=== PATIENT | female | born 1960 | race Caucasian/White ===

== ENCOUNTER 2017-03-15 13:13 | Inpatient (IN) | payer OTHER ==
[~2017-03-15] VITALS: Ht 170.1 cm; Wt 89.4 kg
--- NOTE | ~2017-03-15 | PR ---
[place], [place] PROGRESS NOTE [id number] UNIT #: [id number] ROOM: 515 DOCTOR: BAYRON MAHER MD,JAGUAR BIRTHDATE: [birth year] DOS: 03/18/2017 SUBJECTIVE: She continues to show consistent improvement in respiratory symptoms, reduction in the cough, shortness breath and wheezing. The patient denies symptoms of chest pain. PHYSICAL EXAMINATION: VITAL SIGNS: For the patient, which was recorded shows normal temperature, respiratory rate recorded as 18, heart rate of 58, blood pressure 176/94. HEENT: Shows chronic obesity. NECK: Supple. CARDIOVASCULAR: S1, S2 audible. LUNGS: The patient was noted with moderate decreased breath sounds in the lungs bilaterally. Mild expiratory wheezing at this time. ABDOMEN: Soft, nontender. LABORATORY DATA: CBC: WBC count 18.9. Remaining CBC was normal. 96% segmented neutrophils were noted with the differential. BMP: Sodium 150. BUN and creatinine were normal today. IMPRESSION: 1. Gradual and progressive resolution for the patient was noted in acute exacerbation of COPD with acute tracheobronchitis. 2. Resolving acute hypoxic respiratory failure as well. 3. History of chronic heavy nicotine abuse. PLAN OF TREATMENT: Reduce Solu-Medrol to 60 mg daily. Potential discharge in the morning depending on further improvement in the symptoms after reduction of corticosteroids. Usual care, other supportive, plan of management and therapy. Usual medical management and other therapies. JAGUAR VERMA MD CM:SHANNON [phone] JAGUAR MAHER MD 03/18/17 1554 interface
--- NOTE | ~2017-03-15 | PR ---
[place], [place] PROGRESS NOTE [id number] UNIT #: [id number] ROOM: 515 DOCTOR: BAYRON MAHER MD,JAGUAR BIRTHDATE: [birth year] DOS: 03/19/2017 SUBJECTIVE: She has noted progressive resolution and improvement in respiratory complaints. She does not have any symptoms of acute coughing, chest pain or any abdominal pain. OBJECTIVE: VITAL SIGNS: Showed normal temperature, respiratory rate 14, heart rate 73, blood pressure 152/94. Pulse oxygen saturation of the patient was noted as 96% saturation on 3 L nasal cannula. HEENT: Examination shows head was atraumatic. Eyes nonicterus. NECK: Supple. CARDIOVASCULAR: S1, S2 is audible. LUNGS: The patient was noted without any wheezing or crackles at the present time. ABDOMEN: Soft, nontender. IMPRESSION: The patient with resolving acute hypoxic respiratory failure acute exacerbation of chronic obstructive pulmonary disease in the patient progressively. PLAN OF TREATMENT: The patient could be considered for home discharge for this patient at this time. Home oxygen assessment was ordered prior to the discharge for assessment of possible need of oxygen supplementation at home. She was advised about abstinence of tobacco use. She will receive the tapering dose of prednisone and the antibiotics for the patient as well upon discharge. Short acting bronchodilators will be prescribed as well. JAGUAR VERMA MD CM:PNTRANS [phone] JAGUAR MAHER MD 03/20/17 0114 interface
--- NOTE | ~2017-03-15 | CON ---
[place], [place] REPORT OF CONSULTATION NAME: KENZIE ORELLANA [facility] #: [id number] UNIT #: [id number] ROOM: 515 DOCTOR: JAGUAR GASCA MD BIRTHDATE: [birth year] DOS: 03/17/2017 PULMONARY CONSULTATION EVALUATION AND MANAGEMENT REASON FOR CONSULTATION: Assess the patient for acute exacerbation of COPD. HISTORY OF PRESENT ILLNESS: This is a 56-year-old female patient who has been known with past history of COPD. She has reported symptoms of having increase in shortness breath for this patient over a significant amount of time. The symptoms were noted to worsen in the patient recently. She started with symptoms of excessive chest congestion and coughing as well. Shortness of breath, the patient also noted to worsen in the patient occurring with mild exertional activity. She denies symptoms of chest pain with that. Chest tightness was described. The cough has been noted with mucopurulent sputum expectoration for the patient, sometimes yellowish in color. The patient was also noted symptoms of wheezing as well. She came into the hospital for the patient for further assessment. She has been currently admitted to the hospital, being treated for acute exacerbation of COPD. REVIEW OF SYSTEMS: CONSTITUTIONAL: Fatigue and tiredness noted without symptoms of fever or chills. EYES: Denies any burning, redness, or tenderness. EARS, NOSE, THROAT SYMPTOMS: Denies sore throat, hoarseness, otalgia, postnasal drainage or epistaxis. CARDIOVASCULAR: Denies anginal pain, edema or pain of the lower extremities. GASTROINTESTINAL: Denies dysphagia, nausea, vomiting, diarrhea, abdominal pain, hematemesis, melena, or hematochezia. GENITOURINARY: Denies dysuria, suprapubic pain, hematuria. MUSCULOSKELETAL: Denies any acute joint pain, redness, or tenderness. SKIN: No lesions or rashes. CENTRAL NERVOUS SYSTEM: Denies dizziness, headache, diplopia, syncopal episodes or tingling sensation of the extremities. Remaining systems were reviewed and they were noted all negative. PAST MEDICAL HISTORY: 1. Noted with history of COPD. 2. Diverticulosis. 3. Chronic nicotine dependence. 4. Essential hypertension. 5. Fibromyalgia. 6. Obesity. PAST SURGICAL HISTORY: 1. Hysterectomy. 2. Lumpectomy for this patient. 3. Skin graft. 4. Tonsillectomy as a child. SOCIAL HISTORY: The patient is . She has 5 children. Denies any history of alcohol or any illicit drug use. Tobacco use, started as a teenager [place], [place] REPORT OF CONSULTATION NAME: KENZIE ORELLANA UNIT #: [id number] ROOM: [facility] DOCTOR: BAYRON MAHER MD,JAGUAR BIRTHDATE: [birth year] up to 2 packs of cigarettes per day, which has been gradually reduced by the patient to less than half a pack of cigarettes per day, in the process of trying to quit smoking cigarettes. FAMILY HISTORY: Father at age 7575 years old, complications of COPD with history of CHF. The mother at the age of 6666 years old, complication related to COPD and congestive heart failure. HOME MEDICATIONS: 1. Noted as use of albuterol sulfate with the nebulizer 2.5 mg q.i.d. p.r.n. for shortness of breath. 2. Sinemet for this patient 1 p.o. daily. 3. Coreg 25 mg p.o. daily. 4. Vitamin D3 for the patient 50,000 international units daily. 5. Clonidine 0.3 mg p.o. 4 times a day. 6. Flexeril 5 mg at bedtime p.r.n. for muscle spasm. 7. Valium b.i.d. for the patient, exact dose was unknown. 8. Cymbalta 60 mg daily. 9. Lasix 20 mg b.i.d. 10. Hydralazine 50 mg p.o. t.i.d. 11. Combivent Respimat 4 times a day p.r.n. for shortness of breath use. 12. Lisinopril 20 mg daily. 13. Oxygen supplementation 2 liters at bedtime. 14. Seroquel 25 mg daily. 15. Chantix for the patient 1 mg p.o. b.i.d. ALLERGIES: The drug allergies noted remarkable: 1. AMLODIPINE. 2. ABILIFY. 3. BENADRYL. 4. DEPAKOTE. 5. FELODIPINE. 6. NEURONTIN. 7. HYDRALAZINE. 8. DILAUDID. 9. LORAZEPAM. 10. DEMEROL. 11. NAPROXEN. 12. OXAPROZIN. 13. ZOLOFT. 14. BACTRIM. 15. TRAMADOL. 16. EFFEXOR. PHYSICAL EXAMINATION: GENERAL: This is a 56-year-old female who has been currently noted sitting on a bed without any acute distress. VITAL SIGNS: Height of 5 feet 7 inches, weight of 197 pounds, BMI 30.8. Vital signs are normal temperature recorded, respiratory recorded as 20-18, heart rate of 74-70, blood pressure 157/90-138/75. Pulse oxygen saturation of the patient [place], [place] REPORT OF CONSULTATION NAME: KENZIE ORELLANA UNIT #: [id number] ROOM: [facility] DOCTOR: BAYRON MAHER MD,JAGUAR BIRTHDATE: [birth year] was noted as 97% on 3 liters nasal cannula. Room air was noted 86% oxygen saturation. HEENT: Moderate obesity. Head was atraumatic. Eyes nonicterus. NECK: Supple. CARDIOVASCULAR: S1, S2 is audible. LUNGS: The patient was noted without any crackles. Expiratory wheezing was present. ABDOMEN: Soft, obese, nontender. EXTREMITIES: Shows no edema, clubbing or cyanosis. CENTRAL NERVOUS SYSTEM: The patient shows cranial nerves 2-12 intact. No focal deficit. MUSCULOSKELETAL: No deformities. SKIN: Showed no lesions or any rashes. LABORATORY DATA: On this patient, CBC on admission of 03/15, the patient noted normal CBC. The lactic acid on admission of 03/15 was normal. PT/PTT of 03/15 on admission was normal. CMP of the patient on admission for the patient on 03/15, the patient shows normal BUN and creatinine, CO2 34, remaining CMP was normal. Troponin for the patient, which were done for the patient on and , 4 sets for the patient were all noted normal. BMP that was done yesterday, the patient showed glucose of 165, remaining BMP grossly normal. CBC of the patient of 03/16 for the patient was noted as normal. CBC of this morning, the patient's WBC count 18.9. Remaining CBC was normal. The BMP of patient that was done this morning for the patient was noted as glucose 150, BUN and creatinine was normal. One view chest x-ray that was done on 03/15, patient was reviewed, shows small granuloma noted in the right mid lung with changes of COPD, hyperinflation without any acute pulmonary infiltration. IMPRESSION: 1. The patient has been currently admitted to the hospital for acute respiratory failure as a result of acute exacerbation of COPD and acute bacterial bronchitis, most likely community-acquired infection, suspicion of Streptococcal pneumonia. 2. The patient with moderate obesity as well. 3. History of longstanding tobacco use as well. 4. History of essential hypertension and other medical problems as listed previously. PLAN OF TREATMENT: The patient is currently getting bronchodilator, which will be given to the patient in the same frequency as the DuoNeb. Solu-Medrol has been given to the patient at 60 mg q. 8 hours. The dose will be decreased for the patient today because of reduction of the respiratory symptoms noted in the last 48 hours, to 60 mg b.i.d. dosing today. Monitor respiratory status closely. Sputum for Gram stain and culture. The patient is able to expectorate more sputum. Usual care, other supportive plan and management and therapy. Monitor respiratory status closely. Continue abstinence of tobacco use was recommended for future as well. Continuation of the Mucinex for the patient as well as previously given 1200 mg p.o. b.i.d. [place], [place] REPORT OF CONSULTATION NAME: KENZIE ORELLANA UNIT #: [id number] ROOM: [facility] DOCTOR: JAGUAR GASCA MD BIRTHDATE: [birth year] JAGUAR VERMA MD CM:CONSTR:REPORT OF CONSULTATION 1034 03/18/17 0026 interface
[2017-03-15 13:26] VITALS: BP 110/78
[2017-03-15] MEDS ORDERED: SEROQUEL25 MG PO (13:27)
[2017-03-15] MEDS ORDERED: CYMBALTA60 MG PO (13:27)
[2017-03-15] MEDS ORDERED: MIRALAX17 GM PO (13:28)
[2017-03-15] MEDS ORDERED: CLONIDINE0.3 MG PO (13:28)
[2017-03-15] MEDS ORDERED: CARVEDILOL25 MG PO (13:28)
[2017-03-15] MEDS ORDERED: HYDRALAZINE HYD50 MG PO (13:30)
[2017-03-15] MEDS ORDERED: LISINOPRIL20 MG PO (13:30)
[2017-03-15] MEDS ORDERED: LASIX20 MG PO (13:30)
[2017-03-15] MEDS ORDERED: CARBIDOPA PO (13:31)
[2017-03-15] MEDS ORDERED: CYCLOBENZAPRINE5 M3 PO (13:31)
[2017-03-15] MEDS ORDERED: CHANTIX1 M1 PO (13:31)
[2017-03-15] MEDS ORDERED: [UNRECOGNIZED DRUG - OTHER] PO (13:31)
[2017-03-15] MEDS ORDERED: VITAMIN D350000 UNIT PO (13:42)
[2017-03-15] MEDS ORDERED: OXYGEN NAS (13:42)
[2017-03-15] MEDS ORDERED: ALBUTEROL2.5 MG/0.5 INH (13:46)
[2017-03-15] MEDS ORDERED: COMBIVENT RESPIM4 GM INH (13:47)
[2017-03-15] MEDS ORDERED: VALIUM5 MG PO (13:48)
[2017-03-15 14:04] LABS: BASO % 0.6 % (0.0-1.0); EOS % 0.8 % (1.0-4.0); HEMATOCRIT 42.5 % (37.0-47.0); HEMOGLOBIN 13.9 g/dl (12.0-16.0); LYMPH # 1.3 10*3/uL (1.3-4.4); LYMPH % 26.7 % (27.0-41.0); MEAN CELL VOLUME 91.4 fl (81.0-99.0); MEAN CORPUSCULAR HGB 29.9 pg (27.0-31.0); MEAN CORPUSCULAR HGB CONC 32.7 g/dl (33.0-37.0); MEAN PLATELET VOLUME 10.7 fl (9.6-12.3); MONO # 0.4 10*3/uL (0.1-1.0); MONO % 8.1 % (3.0-9.0); NEUT # 3.1 10*3/uL (2.3-7.9); NEUT % 63.4 % (47.0-73.0); PLATELET COUNT AUTOMATED 156 10*3/uL (130-400); RED BLOOD COUNT 4.65 10*6/uL (4.10-5.10); RED CELL DISTRI WIDTH 13.3 % (0-14.5); WHITE BLOOD COUNT 4.8 10*3/uL (4.8-10.8)
[2017-03-15 14:19] LABS: INTERNATIONAL NORM RATIO 1.1 (2.0-3.5); PROTHROMBIN TIME 11.2 SECONDS (9.0-12.4)
[2017-03-15 14:23] LABS: ALBUMIN 3.4 gm/dl (3.1-4.5); ALKALINE PHOSPHATASE 67 U/L (45-117); BILIRUBIN, TOTAL 0.6 mg/dl (0.2-1.0); BUN 6 mg/dl (7-24); CARBON DIOXIDE 34 mmol/L (21-32); CHLORIDE 102 mmol/L (98-107); EST GLOM FILT AFRICAN AMERICAN > 60 ml/min; GLUCOSE 114 mg/dL (65-99); MAGNESIUM 1.8 mg/dL (1.5-2.1); POTASSIUM 4.4 mmol/L (3.5-5.1); SGOT/AST 16 IU/L (3-35); SGPT/ALT 19 U/L (12-78); SODIUM 142 mmol/L (136-145); TOTAL PROTEIN 6.6 gm/dL (6.4-8.2)
[2017-03-15 14:24] LABS: TROPONIN I 0.028 ng/ml (<0.045)
[2017-03-15 16:00] VITALS: BP 141/88
[2017-03-15 20:00] VITALS: BP 149/70
[2017-03-16] VITALS: BP 128/73
[2017-03-16 04:00] VITALS: BP 158/90
[2017-03-16 06:32] LABS: HEMATOCRIT 43.8 % (37.0-47.0); HEMOGLOBIN 14.3 g/dl (12.0-16.0); LYMPH # 0.8 10*3/uL (1.3-4.4); LYMPH % 10.2 % (27.0-41.0); MEAN CELL VOLUME 90.1 fl (81.0-99.0); MEAN CORPUSCULAR HGB 29.4 pg (27.0-31.0); MEAN CORPUSCULAR HGB CONC 32.6 g/dl (33.0-37.0); MEAN PLATELET VOLUME 10.8 fl (9.6-12.3); MONO # 0.1 10*3/uL (0.1-1.0); MONO % 1.3 % (3.0-9.0); NEUT # 6.9 10*3/uL (2.3-7.9); NEUT % 88.1 % (47.0-73.0); PLATELET COUNT AUTOMATED 167 10*3/uL (130-400); RED BLOOD COUNT 4.86 10*6/uL (4.10-5.10); WHITE BLOOD COUNT 7.9 10*3/uL (4.8-10.8)
[2017-03-16 06:48] LABS: HEMOGLOBIN A1c 6.7 % (4.8-5.6)
[2017-03-16 07:06] LABS: BUN 8 mg/dl (7-24); CARBON DIOXIDE 31 mmol/L (21-32); CHLORIDE 100 mmol/L (98-107); EST GLOM FILT AFRICAN AMERICAN > 60 ml/min; GLUCOSE 165 mg/dL (65-99); POTASSIUM 4.1 mmol/L (3.5-5.1); SODIUM 138 mmol/L (136-145)
[2017-03-16 07:13] LABS: FOLIC ACID 19.85 ng/mL (>5.38); VITAMIN D, 25-HYDROXY 45.5 ng/mL (30-100)
[2017-03-16 07:17] LABS: CHOLESTEROL 171 mg/dL (<200); FREE T4 0.94 ng/dl (0.76-1.46); HDL CHOLESTEROL 82 mg/dl (40-60); LDL CHOLESTEROL 78 mg/dL (9-159); THYROID STIM HORMONE (HS) 0.574 uIU/ml (0.358-4.75); TRIGLYCERIDES 55 mg/dl (<150); VLDL CHOLESTEROL 11 mg/dL (6-40)
[2017-03-16 12:00] VITALS: BP 136/78
[2017-03-16 16:00] VITALS: BP 138/75
[2017-03-16 20:00] VITALS: BP 142/73
[2017-03-17] VITALS: BP 150/83
[2017-03-17 06:23] LABS: HEMATOCRIT 41.2 % (37.0-47.0); HEMOGLOBIN 13.5 g/dl (12.0-16.0); MEAN CELL VOLUME 91.8 fl (81.0-99.0); MEAN CORPUSCULAR HGB 30.1 pg (27.0-31.0); MEAN CORPUSCULAR HGB CONC 32.8 g/dl (33.0-37.0); PLATELET COUNT AUTOMATED 165 10*3/uL (130-400); RED BLOOD COUNT 4.49 10*6/uL (4.10-5.10); RED CELL DISTRI WIDTH 13.3 % (0-14.5); WHITE BLOOD COUNT 18.9 10*3/uL (4.8-10.8)
[2017-03-17 06:48] LABS: BUN 14 mg/dl (7-24); CARBON DIOXIDE 32 mmol/L (21-32); CHLORIDE 104 mmol/L (98-107); EST GLOM FILT AFRICAN AMERICAN > 60 ml/min; GLUCOSE 150 mg/dL (65-99); SODIUM 144 mmol/L (136-145)
[2017-03-17 06:54] LABS: ATYPICAL LYMPHS 1 % (0-0); LYMPHOCYTE # 0.4 10*3/uL (1.3-4.4); MONOCYTE # 0.4 10*3/uL (0.1-1.0); NEUTROPHIL # 18.1 10*3/uL (2.3-7.9); NEUTROPHILS 96 % (47-73); PLATELET SUFFICIENCY NORMAL (NORMAL); TOTAL CELLS COUNTED 100 #CELLS
[2017-03-17 08:00] VITALS: BP 157/90
[2017-03-17 12:00] VITALS: BP 141/78
[2017-03-17 16:00] VITALS: BP 135/85
[2017-03-17 20:00] VITALS: BP 177/99
[2017-03-18] VITALS: BP 152/91
[2017-03-18 08:00] VITALS: BP 176/94
[2017-03-18 12:00] VITALS: BP 150/94
[2017-03-18 16:00] VITALS: BP 129/67
[2017-03-18 20:00] VITALS: BP 136/78
[2017-03-19] VITALS: BP 157/99
[2017-03-19 04:00] VITALS: BP 154/82
[2017-03-19 08:07] VITALS: BP 152/94
[2017-03-19] MEDS ORDERED: PREDNISONE10 MG PO (08:39)
[2017-03-19] MEDS ORDERED: DOXYCYCLINE100 M3 PO (08:39)
[2017-03-19 12:00] VITALS: BP 124/72
== END 2017-03-19 13:50 | disposition home or self-care (01) | DRG 189 ==
LOC: ED 13:13 → EDHOLD 15:20 → 5E 15:20
PROVIDERS: Emergency Medicine; Internal Medicine
DX: J96.21 Acute and chronic respiratory failure with hypoxia (principal); J18.9 Pneumonia, unspecified organism; Z99.81 Dependence on supplemental oxygen; J44.0 Chronic obstructive pulmonary disease with (acute) lower respiratory infection; J44.1 Chronic obstructive pulmonary disease with (acute) exacerbation; R73.9 Hyperglycemia, unspecified; I10 Essential (primary) hypertension; M79.7 Fibromyalgia; K59.00 Constipation, unspecified; K57.90 Diverticulosis of intestine, part unspecified, without perforation or abscess without bleeding; F32.9 Major depressive disorder, single episode, unspecified; F17.210 Nicotine dependence, cigarettes, uncomplicated; F10.21 Alcohol dependence, in remission; J20.9 Acute bronchitis, unspecified; E66.9 Obesity, unspecified; Z90.710 Acquired absence of both cervix and uterus; Z82.49 Family history of ischemic heart disease and other diseases of the circulatory system; Z83.6 Family history of other diseases of the respiratory system; Z88.6 Allergy status to analgesic agent; Z88.2 Allergy status to sulfonamides; Z88.8 Allergy status to other drugs, medicaments and biological substances; Z79.899 Other long term (current) drug therapy; Z68.30 Body mass index [BMI] 30.0-30.9, adult

== ENCOUNTER 2018-02-03 18:43 | Inpatient (IN) | payer OTHER ==
[2018-02-03] VITALS (8 sets, daily range): BP systolic 92–113; BP diastolic 54–80
[~2018-02-03] VITALS: Ht 170.1 cm; Wt 100.4 kg
[~2018-02-03 18:43] MED LIST: ALBUTEROL2.5 MG/0.5 INH; CARBIDOPA PO; CARVEDILOL25 MG PO; CHANTIX1 M1 PO; CLONIDINE0.3 MG PO; COMBIVENT RESPIM4 GM INH; CYCLOBENZAPRINE5 M3 PO; CYMBALTA60 MG PO; DOXYCYCLINE100 M3 PO; HYDRALAZINE HYD50 MG PO; LASIX20 MG PO; LISINOPRIL20 MG PO; MIRALAX17 GM PO; OXYGEN NAS; PREDNISONE10 MG PO; SEROQUEL25 MG PO; VALIUM5 MG PO; VITAMIN D350000 UNIT PO; [UNRECOGNIZED DRUG - OTHER] PO
[2018-02-03 20:26] LABS: BASO % 0.2 % (0.0-1.0); EOS # 0.1 10*3/uL (0.0-0.4); EOS % 1.1 % (1.0-4.0); HEMOGLOBIN 11.3 g/dl (12.0-16.0); LYMPH # 1.5 10*3/uL (1.3-4.4); LYMPH % 14.9 % (27.0-41.0); MEAN CELL VOLUME 98.5 fl (81.0-99.0); MEAN CORPUSCULAR HGB 28.5 pg (27.0-31.0); MEAN PLATELET VOLUME 10.9 fl (9.6-12.3); MONO # 0.7 10*3/uL (0.1-1.0); MONO % 6.9 % (3.0-9.0); NEUT # 7.9 10*3/uL (2.3-7.9); NEUT % 76.6 % (47.0-73.0); PLATELET COUNT AUTOMATED 161 10*3/uL (130-400); RED BLOOD COUNT 3.96 10*6/uL (4.10-5.10); RED CELL DISTRI WIDTH 12.8 % (0-14.5); WHITE BLOOD COUNT 10.3 10*3/uL (4.8-10.8)
[2018-02-03 20:39] LABS: ACT PARTIAL THROMBO TIME 25.8 SECONDS (20.8-31.5)
[2018-02-03 20:45] LABS: ALBUMIN 2.9 gm/dl (3.1-4.5); ALKALINE PHOSPHATASE 69 U/L (45-117); BUN 8 mg/dl (7-24); CHLORIDE 93 mmol/L (98-107); CREATININE 0.57 mg/dL (0.55-1.02); LIPASE 54 U/L (73-393); POTASSIUM 4.5 mmol/L (3.5-5.1); SGOT/AST 8 IU/L (3-35); SGPT/ALT 14 U/L (12-78); SODIUM 141 mmol/L (136-145); TOTAL PROTEIN 6.3 gm/dL (6.4-8.2)
[2018-02-03 20:46] LABS: TROPONIN I < 0.015 ng/ml (<0.045)
[2018-02-03 23:55] LABS: BILIRUBIN NEGATIVE (NEGATIVE); BLOOD NEGATIVE (NEGATIVE); CLARITY CLEAR (CLEAR); COLOR YELLOW (YELLOW); GLUCOSE NEGATIVE (NEGATIVE); KETONE NEGATIVE (NEGATIVE); LEUKO ESTERASE NEGATIVE (NEGATIVE); NITRITE NEGATIVE (NEGATIVE); PH 6.5 (5.0-9.0); SPECIFIC GRAVITY <= 1.005 (1.005-1.030); UROBILINOGEN 0.2 E.U./dl (0.2-1.0)
[2018-02-04 00:19] LABS: WBC 0-2 wbc/hpf (0-5)
[2018-02-04 00:40] VITALS: BP 104/72
[2018-02-04 01:20] VITALS: BP 101/48; BP 104/48
[2018-02-04] MEDS ORDERED: PANTOPRAZOLE SO40 MG PO (02:30)
[2018-02-04] MEDS ORDERED: SIMVASTATIN20 MG PO (02:31)
[2018-02-04] MEDS ORDERED: CALCITRIOL0.25 MCG PO (02:39)
[2018-02-04] MEDS ORDERED: Sinemet Cr 50/21 TAB PO (02:42)
[2018-02-04 05:56] LABS: HEMATOCRIT 40.1 % (37.0-47.0); HEMOGLOBIN 11.8 g/dl (12.0-16.0); MEAN CELL VOLUME 96.6 fl (81.0-99.0); MEAN CORPUSCULAR HGB 28.4 pg (27.0-31.0); MEAN CORPUSCULAR HGB CONC 29.4 g/dl (33.0-37.0); MEAN PLATELET VOLUME 11.2 fl (9.6-12.3); PLATELET COUNT AUTOMATED 143 10*3/uL (130-400); RED BLOOD COUNT 4.15 10*6/uL (4.10-5.10); RED CELL DISTRI WIDTH 12.9 % (0-14.5); WHITE BLOOD COUNT 9.1 10*3/uL (4.8-10.8)
[2018-02-04 06:09] LABS: BUN 7 mg/dl (7-24); CHLORIDE 94 mmol/L (98-107); CHOLESTEROL 178 mg/dL (<200); CREATININE 0.64 mg/dL (0.55-1.02); HDL CHOLESTEROL 57 mg/dl (40-60); LDL CHOLESTEROL 106 mg/dL (9-159); PHOSPHOROUS 2.3 mg/dL (2.5-4.9); POTASSIUM 4.7 mmol/L (3.5-5.1); SODIUM 139 mmol/L (136-145); TRIGLYCERIDES 76 mg/dl (<150); VLDL CHOLESTEROL 15 mg/dL (6-40)
[2018-02-04 06:15] LABS: PLATELET SUFFICIENCY NORMAL (NORMAL); TOTAL CELLS COUNTED 100 #CELLS
[2018-02-04 06:16] LABS: THYROID STIM HORMONE (HS) 0.913 uIU/ml (0.358-4.75)
[2018-02-04 08:00] VITALS: BP 144/88
[2018-02-04 11:05] LABS: VITAMIN D, 25-HYDROXY 42.9 ng/mL (30-100)
[2018-02-04 12:00] VITALS: BP 109/60
[2018-02-04 16:00] VITALS: BP 123/64
[2018-02-04 20:00] VITALS: BP 138/81
[2018-02-05] VITALS: BP 119/58
[2018-02-05 06:03] LABS: BUN 11 mg/dl (7-24); CHLORIDE 96 mmol/L (98-107); CREATININE 0.64 mg/dL (0.55-1.02); PHOSPHOROUS 2.7 mg/dL (2.5-4.9); POTASSIUM 4.5 mmol/L (3.5-5.1); SODIUM 139 mmol/L (136-145)
[2018-02-05 06:06] LABS: HEMATOCRIT 35.8 % (37.0-47.0); LYMPH # 0.8 10*3/uL (1.3-4.4); LYMPH % 5.8 % (27.0-41.0); MEAN CELL VOLUME 94.7 fl (81.0-99.0); MEAN CORPUSCULAR HGB 29.1 pg (27.0-31.0); MEAN CORPUSCULAR HGB CONC 30.7 g/dl (33.0-37.0); MEAN PLATELET VOLUME 11.4 fl (9.6-12.3); MONO # 0.6 10*3/uL (0.1-1.0); MONO % 4.3 % (3.0-9.0); NEUT # 11.5 10*3/uL (2.3-7.9); NEUT % 89.3 % (47.0-73.0); PLATELET COUNT AUTOMATED 149 10*3/uL (130-400); RED BLOOD COUNT 3.78 10*6/uL (4.10-5.10); RED CELL DISTRI WIDTH 12.6 % (0-14.5); WHITE BLOOD COUNT 12.9 10*3/uL (4.8-10.8)
[2018-02-05 08:00] VITALS: BP 124/78
[2018-02-05 12:00] VITALS: BP 135/70
[2018-02-05 16:00] VITALS: BP 115/61
[2018-02-05 20:00] VITALS: BP 129/66
[2018-02-06] VITALS: BP 121/82
[2018-02-06 08:00] VITALS: BP 144/86
[2018-02-06] MEDS ORDERED: PREDNISONE10 MG PO (11:22)
[2018-02-06] MEDS ORDERED: DOXYCYCLINE100 M3 PO (11:22)
[2018-02-06 12:00] VITALS: BP 138/79
== END 2018-02-06 15:11 | disposition home or self-care (01) | DRG 191 ==
LOC: ED 18:43 → EDHOLD 02-04 00:46 → 4E 02-04 00:46
PROVIDERS: Internal Medicine Nephrology; Physician Assistant; Student in an Organized Health Care Education/Training Program
DX: J44.1 Chronic obstructive pulmonary disease with (acute) exacerbation (principal); E44.0 Moderate protein-calorie malnutrition; E87.8 Other disorders of electrolyte and fluid balance, not elsewhere classified; E11.65 Type 2 diabetes mellitus with hyperglycemia; Z99.81 Dependence on supplemental oxygen; D72.810 Lymphocytopenia; D64.9 Anemia, unspecified; K57.90 Diverticulosis of intestine, part unspecified, without perforation or abscess without bleeding; E66.09 Other obesity due to excess calories; E83.89 Other disorders of mineral metabolism; Z66 Do not resuscitate; Z51.5 Encounter for palliative care; F17.210 Nicotine dependence, cigarettes, uncomplicated; M79.7 Fibromyalgia; I10 Essential (primary) hypertension; F32.9 Major depressive disorder, single episode, unspecified; F41.9 Anxiety disorder, unspecified; Z68.34 Body mass index [BMI] 34.0-34.9, adult; Z71.6 Tobacco abuse counseling; Z88.2 Allergy status to sulfonamides; Z88.8 Allergy status to other drugs, medicaments and biological substances; Z88.1 Allergy status to other antibiotic agents; Z79.899 Other long term (current) drug therapy

== ENCOUNTER 2018-03-01 11:07 | Inpatient (IN) | payer OTHER ==
[2018-03-01] VITALS (10 sets, daily range): BP systolic 132–187; BP diastolic 85–111
[~2018-03-01] VITALS: Ht 170.1 cm; Wt 69.9 kg
--- NOTE | ~2018-03-01 | PR ---
[place], [place] PROGRESS NOTE NAME: KENZIE ORELLANA UNIT #: [id number] ROOM: 403 DOCTOR: JAGUAR GASCA MD BIRTHDATE: [birth year] DOS: 03/04/2018 SUBJECTIVE: The patient noted comfortable at this time without any acute distress. She has been noted with reduction in respiratory symptom overnight with use of BiPAP without any difficulty. Denies symptoms of abdominal pain. Denies symptoms of chest pain or hemoptysis. OBJECTIVE: VITAL SIGNS: Normal temperature, respiratory rate 22, heart rate 75, blood pressure 130/76. Pulse oxygen saturation on 4 liters nasal cannula 93% saturation. HEENT: Examination shows head was atraumatic. Eyes nonicterus. NECK: Supple. CARDIOVASCULAR: S1, S2 is audible. LUNGS: The patient was noted without any wheeze or crackles at the present time. ABDOMEN: Soft, nontender. EXTREMITIES: The patient was noted without any acute edema. MUSCULOSKELETAL: Noted without any acute deformities. LABORATORY DATA: Glucose was noted 194, normal BUN and creatinine. Potassium 3.3. IMPRESSION: The patient has been noted with gradual improvement. The patient was noted with severe acute hypercapnic hypoxic respiratory failure and exacerbation of chronic obstructive pulmonary disease, still requires oxygen supplementation with the nasal cannula. Hypokalemia noted as a result of the Diamox. The metabolic alkalosis of the patient is improving, currently noted with CO2 40. PLAN OF MANAGEMENT: Supplementation of potassium. Continue bronchodilators, oxygen supplementation and other therapy, plan of management. Continue the BiPAP use. Supportive care, other therapies. Dose of Solu-Medrol could be decreased to 60 mg b.i.d. from today. [place], [place] PROGRESS NOTE NAME: KENZIE ORELLANA UNIT #: [id number] ROOM: 403 DOCTOR: JAGUAR GASCA MD BIRTHDATE: [birth year] JAGUAR VERMA MD CM:PNTRANS [phone] JAGUAR MAHER MD 03/05/18 0141 interface
--- NOTE | ~2018-03-01 | PR ---
[place], [place] PROGRESS NOTE NAME: KENZIE ORELLANA [facility] #: [id number] UNIT #: [id number] ROOM: 403 DOCTOR: BAYRON MAHER MD,JAGUAR BIRTHDATE: [birth year] DOS: 03/03/2018 SUBJECTIVE: The patient was still noted with [id number]-kodxniyc cough. She stated that she was noted dryness of mouth last night, but she is using the BiPAP, taken off the BiPAP for a few hours and put it back and also noted some nausea and vomiting. She denies symptoms of chest pain or any hemoptysis. Shortness of breath has been noted with gradual reduction. Remaining systems were reviewed, they were noted negative. OBJECTIVE: VITAL SIGNS: For the patient which has been recorded shows the temperature noted as normal. The respiratory recorded 20, heart rate 81, blood pressure 119/71. Pulse oxygen saturation 4 liters nasal cannula noted 95% saturation. BiPAP 96% saturation. HEENT: Head was atraumatic. Eyes nonicterus. NECK: Supple. CARDIOVASCULAR: S1, S2 is audible. LUNGS: General reduction in breath sounds noted bilaterally. ABDOMEN: Soft, nontender. Chronic obesity. EXTREMITIES: Without any acute edema. MUSCULOSKELETAL: Without any acute deformities. CENTRAL NERVOUS SYSTEM: Cranial nerves 2-12 intact. No focal deficit. SKIN: No lesions or rashes. LABORATORY DATA: Today, CBC: WBC count normal, hemoglobin 9.8, hematocrit 32.8, platelet count was normal, 93% segmented neutrophils were noted with a differential. CMP that was done shows glucose 186, BUN 13, creatinine was normal, CO2 of 44. Albumin of 2.9. Blood culture showed no bacterial growths. IMPRESSION: 1. Severe acute hypercapnic and hypoxic respiratory failure with chronic hypercapnia as well. 2. Acute exacerbation of chronic obstructive pulmonary disease. 3. Severe metabolic alkalosis, which has been improving from yesterday. The CO2 decreased from 50-44. There was no evidence of hyperkalemia. PLAN OF MANAGEMENT: Continue current dose of steroids, bronchodilators, oxygen supplementation and use of the BiPAP and the Diamox. Monitor the lab, which she continues especially for the potassium level with use of the Diamox. Other supportive therapy, plan of management, care plan and treatment. [place], [place] PROGRESS NOTE NAME: KENZIE ORELLANA UNIT #: [id number] ROOM: 403 DOCTOR: BAYRON MAHER MD,JAGUAR BIRTHDATE: [birth year] JAGUAR VERMA MD CM:PNTRANS [phone] JAGURA MAHER MD 03/03/18 1455 interface
--- NOTE | ~2018-03-01 | CON ---
[place], [place] REPORT OF CONSULTATION NAME: KENZIE ORELLANA [facility] #: [id number] UNIT #: [id number] ROOM: 403 DOCTOR: JAGUAR GASCA MD BIRTHDATE: [birth year] DOS: 03/02/2018 PULMONARY CONSULTATION, EVALUATION, AND MANAGEMENT REQUESTING PHYSICIAN: Consultation was ordered by the primary care physician. REASON FOR CONSULTATION: For assessment of the respiratory problem, shortness of breath, cough, and others. HISTORY OF PRESENT ILLNESS: This is a 57-year-old white female patient presented to the Emergency Room as she has been noted with increasing respiratory symptom for the past few days. The symptoms have been noted with coughing as well and wheezing. The coughing has been noted with minimal sputum expectoration. The patient stated the coughing, wheezing, and shortness of breath has been decreased since hospitalization from yesterday. She denies symptoms of chest pain or any hemoptysis. She denies any symptoms of chest trauma. She has been using the previous respiratory medications including regular use of oxygen supplementation continued at 3.5 liters. REVIEW OF SYSTEMS: CONSTITUTIONAL: Fatigue and tiredness reported without symptoms of fever or chills. EYES: Denies any burning, redness, or tenderness. EARS, NOSE AND THROAT: Denies sore throat, hoarseness, otalgia, postnasal drainage, or epistaxis. CARDIOVASCULAR: Denies anginal pain, edema, or pain of lower extremities. GASTROINTESTINAL: Dysphagia, nausea, vomiting, diarrhea, abdominal pain, hematemesis, melena, or hematochezia. SKIN: Denies abnormal lesions or rashes. MUSCULOSKELETAL: Denies acute joint pain, redness, or tenderness. CENTRAL NERVOUS SYSTEM: Denies dizziness, headache, diplopia, or syncopal episode. GENITOURINARY: Denies dysuria, suprapubic pain, or hematuria. Remaining systems were reviewed. They were noted all negative. PAST MEDICAL HISTORY: The patient was known: 1. COPD. 2. Diverticulosis. 3. Nicotine dependent. 4. Essential hypertension. 5. Fibromyalgia. 6. Obesity. PAST SURGICAL HISTORY: 1. Hysterectomy. 2. Lumpectomy. 3. Skin graft. 4. Tonsillectomy. [place], [place] REPORT OF CONSULTATION NAME: KENZIE ORELLANA UNIT #: [id number] ROOM: 403 DOCTOR: BAYRON MAHER MD,JAGUAR BIRTHDATE: [birth year] SOCIAL HISTORY: The patient is , lives at home. She has 5 children. She has been known with a history of tobacco use. The patient states she started as a teenager up to 2 packs of cigarettes per day. Stated that she is currently smoking a couple of cigarettes per day. FAMILY HISTORY: Father at 75 years with complication of COPD and congestive heart failure. Mother at 66 years with complication of COPD. MEDICATIONS: Current medications administered noted use of Lasix oral, Lovenox for DVT prophylaxis, Protonix, Sinemet at bedtime, calcitriol, simvastatin, lisinopril, clonidine, Coreg, Seroquel, Solu-Medrol 60 mg q.8 hours, DuoNeb q.4 hours, Levaquin, and other p.r.n. medications. DRUG ALLERGIES: Noted as: 1. ATIVAN. 2. DEPAKOTE. 3. NAPROXEN. 4. BACTRIM. 5. FELODIPINE. 6. AMLODIPINE. 7. OXAPROZIN. 8. ULTRAM. 9. NEURONTIN. 10. EFFEXOR. 11. HYDRALAZINE. 12. ZOLOFT. 13. MEPERIDINE. 14. DILAUDID. 15. BENADRYL. 16. ABILIFY. PHYSICAL EXAMINATION: GENERAL: A 57-year-old white female who has been noted currently awake and alert without acute distress at this time of assessment. The height recorded on admission as 5 feet 7 inches, weight of 250 pounds. VITAL SIGNS: For the patient, which has been recorded showed the temperature noted normal, respiratory rate 18-19, heart rate of 83-85, blood pressure 120/51-140/80. Pulse oxygen saturation recorded on 2 liters nasal cannula was 95% saturation, the BiPAP earlier 97% saturation. HEENT: Examination shows head was atraumatic. Eyes nonicterus. NECK: Supple. CARDIOVASCULAR: S1, S2 is audible. LUNGS: Generally decreased breath sounds with expiratory wheezing, no crackles. ABDOMEN: Soft, obese, nontender. EXTREMITIES: Without any acute edema. SKIN: No lesions or rashes. MUSCULOSKELETAL: Without any acute deformities. CENTRAL NERVOUS SYSTEM: Cranial nerves 2-12 intact. LABORATORY DATA: CBC on admission, WBC count normal, hemoglobin 11.4, MCV 101, [place], [place] REPORT OF CONSULTATION NAME: KENZIE ORELLANA UNIT #: [id number] ROOM: 403 DOCTOR: BAYRNO MAHER MD,[facility] BIRTHDATE: [birth year] platelet count normal. CMP on admission yesterday, BUN normal, creatinine normal, carbon dioxide 54. Albumin 3.0. Arterial blood gas on 03/01/2018, pH of 7.29, pCO2 of 96, pO2 of 72 with 4 liter nasal cannula. The repeat arterial blood gas, pH of 7.32, pCO2 of 90, pO2 of 85 with 5 liters nasal cannula. Troponin normal. The PT, PTT normal. CBC on 03/02/2018, WBC count normal, hemoglobin 11.4, platelet count were normal. BMP on 03/02/2018, normal BUN and creatinine, CO2 was 50. Arterial blood gas today, pH of 7.39, pCO2 of 75, pO2 of 65.9 with the BiPAP settings of 18/10. The chest x-ray that was done yesterday was noted hyperinflation of lung with changes of COPD. IMPRESSION: 1. The patient has been currently admitted to the hospital with severe acute on chronic hypercapnic and hypoxic respiratory failure. 2. Acute tracheobronchitis with acute exacerbation of chronic obstructive pulmonary disease as well. 3. The patient with severe metabolic alkalosis as well. 4. Chronic hypercarbia. 5. Continued nicotine abuse as well. 6. Suspected diagnosis of obstructive sleep apnea disorder as well. PLAN OF MANAGEMENT: The patient will be continued on the bronchodilators administration as well as the BiPAP with the current settings most of the time. Obtain the sputum for Gram stain and culture, she is able to expectorate. Continue current antibiotics, bronchodilators, and use of the corticosteroids. Ordered the Diamox 500 mg 3 times a day, total of 9 doses to improve the severe metabolic alkalosis. Monitoring the labs especially for the hyperkalemia. Other additional treatment changes to be made based on the progression of the illness. Tobacco cessation was addressed. Thanks for allowing me to participate in the care of this patient. JAGUAR VERMA MD CM:CONSTR:REPORT OF CONSULTATION 1658 03/03/18 0522 interface
--- NOTE | ~2018-03-01 | PR ---
[place], [place] PROGRESS NOTE NAME: KENZIE ORELLANA [facility] #: [id number] UNIT #: [id number] ROOM: 403 DOCTOR: BAYRON MAHER MD,JAGUAR BIRTHDATE: [birth year] DOS: 03/06/2018 SUBJECTIVE: The patient was noted comfortable, continued to show reduction and improvement in respiratory symptoms including coughing, shortness breath and wheezing. There were no symptoms of chest pain. Currently, resting comfortably on the bed this morning of assessment. OBJECTIVE: VITAL SIGNS: Has a normal temperature, respiratory rate 16, heart rate ____, blood pressure 139/94 and pulse ox saturation on 3 liters 99-100% saturation. HEENT: Examination shows head was atraumatic. Eyes nonicterus. NECK: Supple. CARDIOVASCULAR: S1, S2 audible. LUNGS: Noted without any wheeze or crackles. ABDOMEN: Soft, nontender. Bowel sounds present. Chronic obesity. EXTREMITIES: Without any acute edema. IMPRESSION: 1. Progressive resolution of the acute respiratory failure with hypercapnia as well. 2. Metabolic alkalosis, resolved. 3. Resolving an acute exacerbation of chronic obstructive pulmonary disease. PLAN OF TREATMENT: Discharge planning was started with the patient for home discharge on oral medications. Continuation of the bronchodilators. Outpatient followup could be scheduled in the office for further assessment. JAGUAR VERMA MD CM:PNTRANS [phone] JAGUAR MAHER MD 03/07/18 0134 interface
--- NOTE | ~2018-03-01 | PR ---
[place], [place] PROGRESS NOTE NAME: KENZIE ORELLANA [facility] #: [id number] UNIT #: [id number] ROOM: 403 DOCTOR: BAYRON MAHER MD,JAGUAR BIRTHDATE: [birth year] DOS: 03/05/2018 SUBJECTIVE: She has been noted comfortable, stating further improvement in the respiratory symptom, reduction in symptoms of shortness of breath and using the BiPAP as ordered. The patient denies symptoms of chest pain or any hemoptysis. The patient is using the other previous medications as ordered for the patient and also receiving Solu-Medrol intravenously. OBJECTIVE: VITAL SIGNS: For the patient which were recorded shows a temperature noted as normal, respiratory rate of 18, heart rate 97, and blood pressure 106/70. The pulse ox saturation on 3 liters nasal cannula 92% saturation. HEENT: Head was atraumatic. Eyes nonicterus. NECK: Supple. CARDIOVASCULAR: S1, S2 is audible. LUNGS: The patient was noted with the reduction in wheezing improvement and air entry of the lungs bilaterally. LABORATORY DATA: Glucose noted 225 and CO2 of 39. IMPRESSION: Resolving acute respiratory failure. The patient progressed with the current management and improving hypercapnia, metabolic alkalosis and exacerbation of chronic obstructive pulmonary disease. PLAN OF THERAPY: Continuation of the current plan of management except the steroid dose, will be decreased to 40 mg b.i.d. Observation and assessment for this patient for the next 24 hours with current plan of treatment with potential discharge consideration for the morning. JAGUAR VERMA MD CM:PNTRANS [id number] JAGUAR MAHER MD 03/05/18 1744 interface
[~2018-03-01 11:07] MED LIST changes: +CALCITRIOL0.25 MCG PO; +PANTOPRAZOLE SO40 MG PO; +SIMVASTATIN20 MG PO; +Sinemet Cr 50/21 TAB PO
[2018-03-01 11:54] LABS: BASO % 0.3 % (0.0-1.0); EOS # 0.1 10*3/uL (0.0-0.4); EOS % 1.5 % (1.0-4.0); HEMATOCRIT 39.5 % (37.0-47.0); HEMOGLOBIN 11.4 g/dl (12.0-16.0); LYMPH # 0.8 10*3/uL (1.3-4.4); LYMPH % 12.5 % (27.0-41.0); MEAN CELL VOLUME 101.3 fl (81.0-99.0); MEAN CORPUSCULAR HGB 29.2 pg (27.0-31.0); MEAN CORPUSCULAR HGB CONC 28.9 g/dl (33.0-37.0); MEAN PLATELET VOLUME 9.8 fl (9.6-12.3); MONO # 0.4 10*3/uL (0.1-1.0); MONO % 6.5 % (3.0-9.0); NEUT # 4.9 10*3/uL (2.3-7.9); NEUT % 78.9 % (47.0-73.0); PLATELET COUNT AUTOMATED 144 10*3/uL (130-400); RED CELL DISTRI WIDTH 13.5 % (0-14.5); WHITE BLOOD COUNT 6.2 10*3/uL (4.8-10.8)
[2018-03-01 12:09] LABS: ALKALINE PHOSPHATASE 67 U/L (45-117); BUN 6 mg/dl (7-24); CREATININE 0.46 mg/dL (0.55-1.02); SGOT/AST 6 IU/L (3-35); SGPT/ALT 13 U/L (12-78); TOTAL PROTEIN 6.4 gm/dL (6.4-8.2)
[2018-03-01 12:11] LABS: CHLORIDE 90 mmol/L (98-107); SODIUM 141 mmol/L (136-145)
[2018-03-01] MEDS ORDERED: PREDNISONE20 M1 PO (14:16)
[2018-03-01] MEDS ORDERED: VIBRAMYCIN100 MG PO (14:16)
[2018-03-01 17:12] LABS: ABG BASE EXCESS 15.6 mmol/L (-2.0-2.0); ABG HCO3 45.6 mmol/l (22-26); ABG O2 SATURATION 93.1 % (95-97); ARTERIAL BLOOD GAS PH 7.296 (7.35-7.45)
[2018-03-01 17:16] LABS: ARTERIAL BLOOD GAS PCO2 96.5 mmHg (35-45)
[2018-03-01 23:16] LABS: ABG BASE EXCESS 16.8 mmol/L (-2.0-2.0); ABG HCO3 46.1 mmol/l (22-26); ARTERIAL BLOOD GAS PH 7.323 (7.35-7.45); ARTERIAL BLOOD GAS PO2 85.6 mmHg (80-90)
[2018-03-01 23:23] LABS: ARTERIAL BLOOD GAS PCO2 90.8 mmHg (35-45)
[2018-03-02] VITALS (7 sets, daily range): BP systolic 98–140; BP diastolic 55–81
[2018-03-02 03:41] LABS: HEMATOCRIT 39.1 % (37.0-47.0); HEMOGLOBIN 11.4 g/dl (12.0-16.0); MEAN CORPUSCULAR HGB 28.9 pg (27.0-31.0); MEAN CORPUSCULAR HGB CONC 29.2 g/dl (33.0-37.0); MEAN PLATELET VOLUME 10.2 fl (9.6-12.3); PLATELET COUNT AUTOMATED 154 10*3/uL (130-400); RED BLOOD COUNT 3.95 10*6/uL (4.10-5.10); RED CELL DISTRI WIDTH 13.4 % (0-14.5); WHITE BLOOD COUNT 6.1 10*3/uL (4.8-10.8)
[2018-03-02 03:55] LABS: ACT PARTIAL THROMBO TIME 24.8 SECONDS (20.8-31.5); INTERNATIONAL NORM RATIO 0.9 (2.0-3.5)
[2018-03-02 04:16] LABS: BUN 8 mg/dl (7-24); CHLORIDE 92 mmol/L (98-107); CHOLESTEROL 189 mg/dL (<200); CREATININE 0.47 mg/dL (0.55-1.02); HDL CHOLESTEROL 73 mg/dl (40-60); LDL CHOLESTEROL 99 mg/dL (9-159); PHOSPHOROUS 3.9 mg/dL (2.5-4.9); POTASSIUM 4.1 mmol/L (3.5-5.1); SODIUM 142 mmol/L (136-145); TRIGLYCERIDES 85 mg/dl (<150); VLDL CHOLESTEROL 17 mg/dL (6-40)
[2018-03-02 04:22] LABS: THYROID STIM HORMONE (HS) 0.439 uIU/ml (0.358-4.75)
[2018-03-02 04:23] LABS: PLATELET SUFFICIENCY NORMAL (NORMAL); TOTAL CELLS COUNTED 100 #CELLS
[2018-03-02 07:07] LABS: ABG BASE EXCESS 17.1 mmol/L (-2.0-2.0); ABG HCO3 45.4 mmol/l (22-26); ABG O2 SATURATION 92.7 % (95-97); ARTERIAL BLOOD GAS PH 7.394 (7.35-7.45); ARTERIAL BLOOD GAS PO2 65.6 mmHg (80-90)
[2018-03-02 07:12] LABS: ARTERIAL BLOOD GAS PCO2 75.7 mmHg (35-45)
[2018-03-02 07:30] LABS: VITAMIN D, 25-HYDROXY 52.5 ng/mL (30-100)
[2018-03-03] VITALS: BP 107/59
[2018-03-03 07:09] LABS: HEMOGLOBIN 9.8 g/dl (12.0-16.0); MEAN CELL VOLUME 96.5 fl (81.0-99.0); MEAN CORPUSCULAR HGB 28.8 pg (27.0-31.0); MEAN CORPUSCULAR HGB CONC 29.9 g/dl (33.0-37.0); MEAN PLATELET VOLUME 10.6 fl (9.6-12.3); PLATELET COUNT AUTOMATED 160 10*3/uL (130-400); RED CELL DISTRI WIDTH 13.6 % (0-14.5); WHITE BLOOD COUNT 9.4 10*3/uL (4.8-10.8)
[2018-03-03 07:14] LABS: HEMATOCRIT 32.8 % (37.0-47.0)
[2018-03-03 07:30] LABS: ALBUMIN 2.9 gm/dl (3.1-4.5); BUN 13 mg/dl (7-24); CHLORIDE 92 mmol/L (98-107); POTASSIUM 3.6 mmol/L (3.5-5.1); SODIUM 139 mmol/L (136-145)
[2018-03-03 07:33] LABS: ALKALINE PHOSPHATASE 56 U/L (45-117); CREATININE 0.63 mg/dL (0.55-1.02); SGOT/AST 5 IU/L (3-35); TOTAL PROTEIN 5.8 gm/dL (6.4-8.2)
[2018-03-03 07:35] LABS: PLATELET SUFFICIENCY NORMAL (NORMAL); SGPT/ALT < 6 U/L (12-78); TOTAL CELLS COUNTED 100 #CELLS
[2018-03-03 08:00] VITALS: BP 112/59
[2018-03-03 12:00] VITALS: BP 119/71
[2018-03-03 16:00] VITALS: BP 130/68
[2018-03-03 20:00] VITALS: BP 128/67
[2018-03-04] VITALS: BP 102/62
[2018-03-04 07:00] LABS: ALBUMIN 2.9 gm/dl (3.1-4.5); ALKALINE PHOSPHATASE 52 U/L (45-117); BUN 18 mg/dl (7-24); CHLORIDE 91 mmol/L (98-107); CREATININE 0.65 mg/dL (0.55-1.02); POTASSIUM 3.3 mmol/L (3.5-5.1); SGOT/AST 7 IU/L (3-35); SGPT/ALT < 6 U/L (12-78); SODIUM 136 mmol/L (136-145); TOTAL PROTEIN 5.7 gm/dL (6.4-8.2)
[2018-03-04 08:00] VITALS: BP 130/76
[2018-03-04 12:00] VITALS: BP 122/68
[2018-03-04 16:00] VITALS: BP 126/64
[2018-03-04 20:00] VITALS: BP 110/66
[2018-03-05] VITALS: BP 132/71
[2018-03-05 06:38] LABS: ALBUMIN 2.7 gm/dl (3.1-4.5); BUN 19 mg/dl (7-24); CHLORIDE 93 mmol/L (98-107); POTASSIUM 3.8 mmol/L (3.5-5.1); SODIUM 137 mmol/L (136-145)
[2018-03-05 06:42] LABS: ALKALINE PHOSPHATASE 56 U/L (45-117); CREATININE 0.75 mg/dL (0.55-1.02); SGOT/AST 6 IU/L (3-35); SGPT/ALT 13 U/L (12-78); TOTAL PROTEIN 5.6 gm/dL (6.4-8.2)
[2018-03-05 08:00] VITALS: BP 124/70
[2018-03-05 12:00] VITALS: BP 126/70
[2018-03-05 16:00] VITALS: BP 123/83
[2018-03-05 20:00] VITALS: BP 142/83
[2018-03-06] VITALS: BP 128/72
[2018-03-06 06:14] LABS: BASO % 0.1 % (0.0-1.0); EOS % 0.1 % (1.0-4.0); HEMATOCRIT 34.4 % (37.0-47.0); HEMOGLOBIN 10.7 g/dl (12.0-16.0); LYMPH # 0.4 10*3/uL (1.3-4.4); LYMPH % 4.9 % (27.0-41.0); MEAN CORPUSCULAR HGB 28.9 pg (27.0-31.0); MEAN CORPUSCULAR HGB CONC 31.1 g/dl (33.0-37.0); MONO # 0.5 10*3/uL (0.1-1.0); MONO % 5.8 % (3.0-9.0); NEUT % 86.8 % (47.0-73.0); PLATELET COUNT AUTOMATED 187 10*3/uL (130-400); RED CELL DISTRI WIDTH 13.5 % (0-14.5)
[2018-03-06 08:00] VITALS: BP 137/94
[2018-03-06] MEDS ORDERED: PREDNISONE10 MG PO (09:44)
[2018-03-06] MEDS ORDERED: DOXYCYCLINE100 M3 PO (09:44)
[2018-03-06] MEDS ORDERED: METFORMIN HYDR500 MG PO (12:07)
== END 2018-03-06 12:52 | disposition home or self-care (01) | DRG 193 ==
LOC: ED 11:07 → EDHOLD 17:56 → 4E 17:56 → ICCU 18:22 → 4E 18:37
PROVIDERS: Emergency Medicine; Internal Medicine; Internal Medicine Critical Care Medicine
PROC: 5A09357 Assistance with Respiratory Ventilation, Less than 24 Consecutive Hours, Continuous Positive Airway Pressure (ICD-10-PCS; principal; 2018-03-01)
PROC: 5A09357 Assistance with Respiratory Ventilation, Less than 24 Consecutive Hours, Continuous Positive Airway Pressure (ICD-10-PCS; 2018-03-02)
PROC: 5A09357 Assistance with Respiratory Ventilation, Less than 24 Consecutive Hours, Continuous Positive Airway Pressure (ICD-10-PCS; 2018-03-03)
PROC: 5A09357 Assistance with Respiratory Ventilation, Less than 24 Consecutive Hours, Continuous Positive Airway Pressure (ICD-10-PCS; 2018-03-06)
DX: J18.9 Pneumonia, unspecified organism (principal); J96.21 Acute and chronic respiratory failure with hypoxia; E87.2 Acidosis; E44.0 Moderate protein-calorie malnutrition; E87.3 Alkalosis; I11.0 Hypertensive heart disease with heart failure; I50.32 Chronic diastolic (congestive) heart failure; E11.65 Type 2 diabetes mellitus with hyperglycemia; B36.9 Superficial mycosis, unspecified; J96.22 Acute and chronic respiratory failure with hypercapnia; J44.0 Chronic obstructive pulmonary disease with (acute) lower respiratory infection; J44.1 Chronic obstructive pulmonary disease with (acute) exacerbation; D53.9 Nutritional anemia, unspecified; D72.810 Lymphocytopenia; F17.210 Nicotine dependence, cigarettes, uncomplicated; M79.7 Fibromyalgia; E55.9 Vitamin D deficiency, unspecified; K21.9 Gastro-esophageal reflux disease without esophagitis; F41.1 Generalized anxiety disorder; E78.00 Pure hypercholesterolemia, unspecified; F32.9 Major depressive disorder, single episode, unspecified; K57.90 Diverticulosis of intestine, part unspecified, without perforation or abscess without bleeding; E87.6 Hypokalemia; E66.9 Obesity, unspecified; J20.9 Acute bronchitis, unspecified; Z71.6 Tobacco abuse counseling; Z99.81 Dependence on supplemental oxygen; Z88.8 Allergy status to other drugs, medicaments and biological substances; Z88.2 Allergy status to sulfonamides; Z90.710 Acquired absence of both cervix and uterus; Z98.51 Tubal ligation status; Z82.5 Family history of asthma and other chronic lower respiratory diseases; Z83.3 Family history of diabetes mellitus; Z82.49 Family history of ischemic heart disease and other diseases of the circulatory system; Z68.24 Body mass index [BMI] 24.0-24.9, adult

== ENCOUNTER 2018-03-12 13:42 | Inpatient (IN) | payer OTHER ==
[~2018-03-12] VITALS: Ht 170.1 cm; Wt 103.9 kg
--- NOTE | ~2018-03-12 | EKG ---
[place], [place] ELECTROCARDIOGRAM REPORT NAME: KENZIE ORELLANA UNIT #: [id number] ROOM: 518 DOCTOR: JAGUAR GASCA MD BIRTHDATE: [birth year] DOS: 03/12/2018 ELECTROCARDIOGRAM TIME: 02:48 p.m. FINDINGS: Normal sinus rhythm noted. Heart rate of 87 beats per minute with short MN interval. JAGUAR VERMA MD CM:EKGRPT:ELECTROCARDIOGRAM REPORT [id number] JAGUAR MAHER MD
--- NOTE | ~2018-03-12 | PR ---
[place], [place] PROGRESS NOTE [id number] UNIT #: [id number] ROOM: 518 DOCTOR: BAYRON MAHER MD,JAGUAR BIRTHDATE: [birth year] DOS: 03/16/2018 SUBJECTIVE: The patient noted comfortable at this time, resting on the bed, reported no cough, shortness of breath has been improving. Denies symptoms of chest pain or hemoptysis. Denies symptoms of abdominal pain. Using the BiPAP at nighttime mostly and oxygen supplementation during the day. OBJECTIVE: VITAL SIGNS: Normal temperature, respiratory rate 18, heart rate 80, blood pressure 140/70. Pulse oxygen saturation on 3.5 liters nasal cannula 93% saturation. HEENT: Examination shows head was atraumatic. Eyes: Nonicterus. NECK: Supple. CARDIOVASCULAR: S1, S2 audible. LUNGS: The patient was noted without any wheezing or crackles at the present time. Deep breaths are noted moderate, decreased bilaterally. ABDOMEN: Soft and obese. EXTREMITIES: Chronic obesity. LABORATORY DATA: BMP today for the patient was noted with glucose 247, CO2 of 47. CBC: WBC count 14.7 HGB 10.3. IMPRESSION: 1. The patient with metabolic alkalosis, which has been noted persistent at this time, currently getting the Diamox 250 mg q.8 hours. 2. Resolving acute on chronic hypercapnic and hypoxic respiratory failure with exacerbation of chronic obstructive pulmonary disease. PLAN OF MANAGEMENT: Continuation of the current plan of care for the patient at this time with no changes. Weight for this patient would be metabolic alkalosis to resolve prior to consideration of home discharge. JAGUAR VERMA MD CM:PNTRANS [id number] JAGUAR MAHER MD 03/22/18 0747 interface
--- NOTE | ~2018-03-12 | PR ---
[place], [place] PROGRESS NOTE NAME: KENZIE ORELLANA UNIT #: [id number] ROOM: 518 DOCTOR: JAGUAR GASCA MD BIRTHDATE: [birth year] DOS: 03/14/2018 SUBJECTIVE: She has been noted comfortable at this time, resting in the bed without any acute distress. Denies symptoms of chest pain, coughing or any sputum expectoration. The patient stated that the shortness of breath has been noted partially decreased in the last 24 hours. Denies any symptoms of wheezing at rest. Denies symptoms of abdominal pain. OBJECTIVE: VITAL SIGNS: Normal temperature, respiratory rate 18, heart rate 82, blood pressure of 124/71 at 8 o'clock. The pulse ox saturation on 3 liters nasal cannula was 95% saturation this morning at rest. HEENT: Chronic obesity. Head was atraumatic. Eyes nonicterus. NECK: Supple. CARDIOVASCULAR: S1, S2 is audible. LUNGS: The patient was noted without any wheezing or crackles at the present time. Breaths are noted generally diminished bilaterally. ABDOMEN: Soft and obese. EXTREMITIES: No acute edema. LABORATORY DATA: CBC today: WBC count 19.5, hemoglobin 10, platelet count was normal. CMP that was done this morning, glucose 203. CO2 is 55. Potassium remains normal at 4.7. IMPRESSION: 1. The patient with acute exacerbation of chronic obstructive pulmonary disease with acute bronchitis. 2. Severe metabolic alkalosis was also noted as well to chronic hypercarbia as well. 3. Morbid obesity. 4. History of nicotine dependence. PLAN OF MANAGEMENT: Continue to monitor lab for the sodium level and the assessment of the CO2 level in the blood testing. Continue other therapy, plan of management and care. Usual treatment, other supportive plan of care and management. Continue use of the BiPAP as ordered. [place], [place] PROGRESS NOTE NAME: KENZIE ORELLANA UNIT #: [id number] ROOM: 518 DOCTOR: JAGUAR GASCA MD BIRTHDATE: [birth year] JAGUAR VERMA MD CM:PNTRANS [id number] JAGUAR MAHER MD 03/15/18 0027 interface
--- NOTE | ~2018-03-12 | CON ---
[place], [place] REPORT OF CONSULTATION NAME: KENZIE ORELLANA [facility] #: [id number] UNIT #: [id number] ROOM: 518 DOCTOR: JAGUAR GASCA MD BIRTHDATE: [birth year] DOS: 03/13/2018 PULMONARY CONSULTATION, EVALUATION, AND MANAGEMENT CONSULTATION REQUESTED BY: Hospitalist service. REASON FOR CONSULTATION: For assessment of the current abnormal respiratory symptoms of shortness of breath. HISTORY OF PRESENT ILLNESS: This is a 57-year-old white female who has been recently admitted to the hospital and discharged home on 03/06/2018. The patient remained in the hospital from 03/01/2017 to 03/06/2017, was treated for acute hypercapnic and hypoxic respiratory failure. The patient has used the BiPAP and oxygen supplementation. She was also noted with acute exacerbation of chronic obstructive pulmonary disease, treated with intravenous corticosteroids, bronchodilators, and other and also noted with metabolic alkalosis. The patient was discharged home, presented back to the Emergency Room on 03/12/2018. The patient reported symptoms of having increased shortness of breath that has been noted at home. The patient's shortness of breath has been noted worsened after discharge from the hospital. She denies symptoms of chest pain or hemoptysis. She does have a cough, which is noted [id number] without any sputum expectoration. She does complain of symptoms of tightness in the chest and symptoms of wheezing reported by the patient. The patient has been admitted to the hospital for further medical management at this time. She has a CT of the chest done yesterday on admission in the Emergency Room as well. REVIEW OF SYSTEMS: CONSTITUTIONAL SYMPTOMS: Fatigue and tiredness noted without any symptoms of fever or chills. EYES: Denies any burning, redness, or tenderness. EARS, NOSE, AND THROAT SYMPTOMS: Denies sore throat, hoarseness, otalgia, postnasal drainage, or epistaxis. CARDIOVASCULAR SYSTEM: Denies angina pain noted with pain described in the left side of the chest, worsened with the cough. The pain was described to be nonradiating, [id number] as well. The pain increases with deep inspiratory effort. GASTROINTESTINAL SYMPTOMS: Denies dysphagia, nausea, vomiting, diarrhea, abdominal pain, hematemesis, melena, hematochezia, or history of chronic obesity. There was history of abnormal weight loss. GENITOURINARY SYMPTOMS: Denies dysuria, suprapubic pain, or hematuria. MUSCULOSKELETAL SYMPTOMS: No acute joint pain, redness, or tenderness. SKIN: Denies abnormal lesions or rashes. CENTRAL NERVOUS SYSTEM: Denies dizziness, headache, or diplopia. Remaining systems were reviewed and they were noted all negative. PAST MEDICAL HISTORY, SURGICAL HISTORY, SOCIAL HISTORY, AND FAMILY HISTORY: Reviewed and remains unchanged since my consultation, which was completed on 03/02/2018 was noted unchanged except the patient stated that she has not been smoking cigarettes much at this time. [place], [place] REPORT OF CONSULTATION NAME: KENZIE ORELLANA UNIT #: [id number] ROOM: 518 DOCTOR: BAYRON MAHER MD,JAGUAR BIRTHDATE: [birth year] MEDICATIONS: The current medications administered noted use of vitamin D, potassium chloride, Lasix, Cymbalta, Lovenox for DVT prophylaxis, Protonix, simvastatin, Seroquel, lisinopril, clonidine, Coreg, carbidopa/levodopa, calcitriol, Solu-Medrol 60 mg q.8 hours, Mucinex, azithromycin, Rocephin, and other medications. DRUG ALLERGY HISTORY: THE PATIENT NOTED ALLERGY TO: 1. ATIVAN. 2. DEPAKOTE. 3. NAPROXEN. 4. BACTRIM. 5. FELODIPINE. 6. AMLODIPINE. 7. OXAPROZIN. 8. ULTRAM. 9. GABAPENTIN. 10. EFFEXOR. 11. HYDRALAZINE. 12. SERTRALINE. 13. DEMEROL. 14. DILAUDID. 15. BENADRYL. 16. ABILIFY. PHYSICAL EXAMINATION: GENERAL: A 57-year-old female patient who has been noted currently without acute distress, sitting on the bed. Height of 5 feet 7 inches, weight of 229 pounds, and BMI 35.9. VITAL SIGNS: Vital signs of the patient, which has been recorded showed normal temperature from admission, respiratory rate 18-15, heart rate of 84-87, and blood pressure 105/51-142/85. Pulse oxygen saturation on 3 liters nasal cannula 97% saturation. HEENT: Head is atraumatic, chronic obesity. Decreased posterior pharyngeal space. CARDIOVASCULAR: S1, S2 audible. LUNGS: Noted generalized. Decreased breath sounds noted without any significant wheezing or crackles at the present time. ABDOMEN: Soft, obese, and nontender. EXTREMITIES: The patient was noted without any acute edema. MUSCULOSKELETAL: The patient was noted without any acute deformities. SKIN: Noted without any lesions or rashes. CENTRAL NERVOUS SYSTEM: Cranial nerves 2-12 intact. LABORATORY DATA: Lactic acid yesterday noted normal on admission 1.2. PT and PTT were noted normal. CBC of the patient on 03/12/2018, WBC count 13.4, hemoglobin, hematocrit, and platelet count normal. CMP of the patient of 03/12/2018 was noted with glucose of 208, BUN and creatinine normal. CO2 noted elevated as 59. Arterial blood gas, pH of 7.40, pCO2 91, and pO2 62.8. CMP this morning, glucose 231, BUN and creatinine were normal. CO2 is still elevated at 59, chloride of 85. CBC for the patient this morning, WBC count [place], [place] REPORT OF CONSULTATION NAME: KENZIE ORELLANA UNIT #: [id number] ROOM: 518 DOCTOR: BAYRON MAHER MD,[facility] BIRTHDATE: [birth year] 13.3, hemoglobin 11.3, and platelet count was normal. Chest x-ray of the patient limited view because of current body habitus, but does not show any acute abnormalities. CT of the chest was also done in the Emergency Room noted essentially a normal study. IMPRESSION: 1. The patient will be admitted to the hospital with chronic obstructive pulmonary disease exacerbation that was noted on this admission with previous history of nicotine abuse. 2. Severe hypercarbia was also noted with the severe metabolic alkalosis as well. There was no evidence of acute pneumonia. 3. Strong suspicion of obstructive sleep apnea disorder as well. 4. Chronic obstructive pulmonary disease exacerbation as well, questionable to use of the medication prescription previously and other reasons including possible use of nicotine abuse. PLAN OF MANAGEMENT: Continuation of the bronchodilators, oxygen supplementation, and Solu-Medrol. Start the patient on Diamox at 250 mg q.8 hours for the next several days. Monitor labs especially for hyperkalemia. Other treatment changes to be made for the patient based on the progression of the illness. Supportive plan of management and other care. Additional treatment changes will be recommended based on progression of illness. JAGUAR VERMA MD CM:CONSTR:REPORT OF CONSULTATION 1550 03/13/18 9216 interface
--- NOTE | ~2018-03-12 | PR ---
[place], [place] PROGRESS NOTE NAME: KENZIE ORELLANA [facility] #: [id number] UNIT #: [id number] ROOM: 518 DOCTOR: BAYRON MAHER MD,JAGUAR BIRTHDATE: [birth year] DOS: 03/15/2018 SUBJECTIVE: She reported reduction of symptoms of shortness of breath. The cough has been still noted at times with minimal sputum expectoration. Denies symptoms of hemoptysis. Denies symptoms of fever, chills, or wheezing. OBJECTIVE: VITAL SIGNS: Normal temperature, respiratory rate 18, heart rate 87, blood pressure 115/60. The pulse oxygen saturation on 2-1/2 liters nasal cannula is 98% saturation with the usual home oxygen level as well. NECK: Supple and obese. CARDIOVASCULAR: S1, S2 audible. LUNGS: The patient noted with moderate decreased breath sounds without any wheezing or crackles. ABDOMEN: Soft and obese. EXTREMITIES: Without any acute edema. LABORATORY DATA: The CBC of the patient is 6.5, WBC count 18.2, hemoglobin 10.6, platelet count was normal. The CMP for the patient, glucose 256, BUN normal, creatinine was normal. CO2 is 44 today. IMPRESSION: The patient with gradual resolution of the severe metabolic alkalosis with resolving acute on chronic hypercapnic hypoxic respiratory failure with exacerbation of chronic obstructive pulmonary disease. PLAN OF TREATMENT: Continue Diamox, bronchodilators, oxygen supplementation, use of the BiPAP at nighttime, p.r.n. during the day and other medical treatments. JAGUAR VERMA MD CM:PNTRANS [id number] JAGUAR MAHER MD 03/15/18 1341 interface
[~2018-03-12 13:42] MED LIST changes: +METFORMIN HYDR500 MG PO; +PREDNISONE20 M1 PO; +VIBRAMYCIN100 MG PO
[2018-03-12 13:45] VITALS: BP 124/83
[2018-03-12 14:36] LABS: HEMOGLOBIN 12.3 g/dl (12.0-16.0); MEAN CELL VOLUME 98.3 fl (81.0-99.0); MEAN CORPUSCULAR HGB 29.5 pg (27.0-31.0); PLATELET COUNT AUTOMATED 234 10*3/uL (130-400); RED BLOOD COUNT 4.17 10*6/uL (4.10-5.10); RED CELL DISTRI WIDTH 13.6 % (0-14.5); WHITE BLOOD COUNT 13.4 10*3/uL (4.8-10.8)
[2018-03-12 14:45] LABS: ACT PARTIAL THROMBO TIME 21.3 SECONDS (20.8-31.5)
[2018-03-12 14:53] LABS: ALBUMIN 3.3 gm/dl (3.1-4.5); ALKALINE PHOSPHATASE 57 U/L (45-117); BUN 6 mg/dl (7-24); CHLORIDE 82 mmol/L (98-107); CREATININE 0.54 mg/dL (0.55-1.02); LIPASE 58 U/L (73-393); POTASSIUM 3.2 mmol/L (3.5-5.1); SGOT/AST 11 IU/L (3-35); SGPT/ALT 18 U/L (12-78); SODIUM 140 mmol/L (136-145); TOTAL PROTEIN 6.2 gm/dL (6.4-8.2)
[2018-03-12 15:04] LABS: PLATELET SUFFICIENCY NORMAL (NORMAL); TOTAL CELLS COUNTED 100 #CELLS
[2018-03-12 15:07] LABS: STOMATOCYTE MANY
[2018-03-12 15:21] LABS: TROPONIN I < 0.015 ng/ml (<0.045)
[2018-03-12 16:28] LABS: ABG BASE EXCESS 26.4 mmol/L (-2.0-2.0); ABG HCO3 56.4 mmol/l (22-26); ABG O2 SATURATION 93.1 % (95-97); ARTERIAL BLOOD GAS PH 7.404 (7.35-7.45); ARTERIAL BLOOD GAS PO2 62.8 mmHg (80-90)
[2018-03-12 16:34] LABS: ARTERIAL BLOOD GAS PCO2 91.5 mmHg (35-45)
[2018-03-12 16:41] LABS: BILIRUBIN NEGATIVE (NEGATIVE); BLOOD NEGATIVE (NEGATIVE); CLARITY CLEAR (CLEAR); COLOR YELLOW (YELLOW); GLUCOSE 2+ (NEGATIVE); KETONE NEGATIVE (NEGATIVE); LEUKO ESTERASE NEGATIVE (NEGATIVE); NITRITE NEGATIVE (NEGATIVE); PH 7.5 (5.0-9.0); UROBILINOGEN 0.2 E.U./dl (0.2-1.0)
[2018-03-12 16:48] LABS: EPITHELIAL CELLS 30-35
[2018-03-12 17:00] VITALS: BP 115/76
[2018-03-12 17:58] VITALS: BP 115/76
[2018-03-12] MEDS ORDERED: POTASSIUM CHLO10 MEQ PO (18:02)
[2018-03-12] MEDS ORDERED: BENZONATATE200 MG PO (18:08)
[2018-03-12] MEDS ORDERED: METFORMIN ER500 MG PO (18:23)
[2018-03-12 18:53] VITALS: BP 142/85
[2018-03-12 20:00] VITALS: BP 117/75
[2018-03-13] VITALS: BP 138/70
[2018-03-13 06:38] LABS: HEMATOCRIT 38.4 % (37.0-47.0); HEMOGLOBIN 11.3 g/dl (12.0-16.0); MEAN CORPUSCULAR HGB 28.8 pg (27.0-31.0); MEAN CORPUSCULAR HGB CONC 29.4 g/dl (33.0-37.0); MEAN PLATELET VOLUME 10.4 fl (9.6-12.3); PLATELET COUNT AUTOMATED 212 10*3/uL (130-400); RED BLOOD COUNT 3.92 10*6/uL (4.10-5.10); RED CELL DISTRI WIDTH 13.6 % (0-14.5); WHITE BLOOD COUNT 13.3 10*3/uL (4.8-10.8)
[2018-03-13 07:06] LABS: ALKALINE PHOSPHATASE 55 U/L (45-117); BUN 15 mg/dl (7-24); CHLORIDE 85 mmol/L (98-107); CREATININE 0.67 mg/dL (0.55-1.02); PHOSPHOROUS 3.3 mg/dL (2.5-4.9); POTASSIUM 3.7 mmol/L (3.5-5.1); SGOT/AST 9 IU/L (3-35); SGPT/ALT 6 U/L (12-78); SODIUM 141 mmol/L (136-145); TOTAL PROTEIN 5.7 gm/dL (6.4-8.2)
[2018-03-13 07:47] LABS: PLATELET SUFFICIENCY NORMAL (NORMAL); STOMATOCYTE MODERATE; TOTAL CELLS COUNTED 100 #CELLS
[2018-03-13 08:00] VITALS: BP 138/79
[2018-03-13 12:00] VITALS: BP 105/51
[2018-03-13 16:00] VITALS: BP 128/73
[2018-03-13 20:50] VITALS: BP 133/79
[2018-03-14 00:07] VITALS: BP 113/63
[2018-03-14 06:42] LABS: HEMATOCRIT 36.2 % (37.0-47.0); HEMOGLOBIN 10.6 g/dl (12.0-16.0); MEAN CELL VOLUME 97.8 fl (81.0-99.0); MEAN CORPUSCULAR HGB 28.6 pg (27.0-31.0); MEAN CORPUSCULAR HGB CONC 29.3 g/dl (33.0-37.0); MEAN PLATELET VOLUME 10.5 fl (9.6-12.3); PLATELET COUNT AUTOMATED 193 10*3/uL (130-400); RED CELL DISTRI WIDTH 13.4 % (0-14.5); WHITE BLOOD COUNT 19.5 10*3/uL (4.8-10.8)
[2018-03-14 07:07] LABS: PLATELET SUFFICIENCY NORMAL (NORMAL); TOTAL CELLS COUNTED 100 #CELLS
[2018-03-14 07:13] LABS: ALBUMIN 2.9 gm/dl (3.1-4.5); ALKALINE PHOSPHATASE 42 U/L (45-117); BUN 19 mg/dl (7-24); CHLORIDE 88 mmol/L (98-107); CREATININE 0.66 mg/dL (0.55-1.02); SGOT/AST 11 IU/L (3-35); SGPT/ALT 8 U/L (12-78); TOTAL PROTEIN 5.4 gm/dL (6.4-8.2)
[2018-03-14 07:17] LABS: SODIUM 140 mmol/L (136-145)
[2018-03-14 07:29] LABS: POTASSIUM 4.7 mmol/L (3.5-5.1)
[2018-03-14 08:00] VITALS: BP 124/71
[2018-03-14 12:00] VITALS: BP 98/50
[2018-03-14 16:00] VITALS: BP 119/72
[2018-03-14 20:00] VITALS: BP 104/61
[2018-03-15] VITALS: BP 125/74
[2018-03-15 07:26] LABS: HEMATOCRIT 35.3 % (37.0-47.0); HEMOGLOBIN 10.6 g/dl (12.0-16.0); MEAN CELL VOLUME 96.4 fl (81.0-99.0); MEAN PLATELET VOLUME 10.7 fl (9.6-12.3); PLATELET COUNT AUTOMATED 167 10*3/uL (130-400); RED BLOOD COUNT 3.66 10*6/uL (4.10-5.10); RED CELL DISTRI WIDTH 13.5 % (0-14.5); WHITE BLOOD COUNT 18.2 10*3/uL (4.8-10.8)
[2018-03-15 07:54] LABS: ALBUMIN 2.8 gm/dl (3.1-4.5); ALKALINE PHOSPHATASE 46 U/L (45-117); BUN 22 mg/dl (7-24); CHLORIDE 87 mmol/L (98-107); CREATININE 0.72 mg/dL (0.55-1.02); POTASSIUM 3.9 mmol/L (3.5-5.1); SGOT/AST 7 IU/L (3-35); SGPT/ALT 7 U/L (12-78); SODIUM 138 mmol/L (136-145); TOTAL PROTEIN 5.3 gm/dL (6.4-8.2)
[2018-03-15 08:00] VITALS: BP 115/60
[2018-03-15 08:06] LABS: PLATELET SUFFICIENCY NORMAL (NORMAL); TOTAL CELLS COUNTED 100 #CELLS
[2018-03-15 12:00] VITALS: BP 109/67
[2018-03-15 16:00] VITALS: BP 121/63
[2018-03-15 20:00] VITALS: BP 142/75
[2018-03-16] VITALS: BP 128/71
[2018-03-16 06:44] LABS: HEMATOCRIT 34.7 % (37.0-47.0); HEMOGLOBIN 10.3 g/dl (12.0-16.0); MEAN CELL VOLUME 96.4 fl (81.0-99.0); MEAN CORPUSCULAR HGB 28.6 pg (27.0-31.0); MEAN CORPUSCULAR HGB CONC 29.7 g/dl (33.0-37.0); MEAN PLATELET VOLUME 10.8 fl (9.6-12.3); PLATELET COUNT AUTOMATED 147 10*3/uL (130-400); RED CELL DISTRI WIDTH 13.5 % (0-14.5); WHITE BLOOD COUNT 14.4 10*3/uL (4.8-10.8)
[2018-03-16 07:02] LABS: ALBUMIN 2.8 gm/dl (3.1-4.5); ALKALINE PHOSPHATASE 41 U/L (45-117); BUN 21 mg/dl (7-24); CHLORIDE 91 mmol/L (98-107); CREATININE 0.64 mg/dL (0.55-1.02); POTASSIUM 4.6 mmol/L (3.5-5.1); SGOT/AST 11 IU/L (3-35); SGPT/ALT 19 U/L (12-78); SODIUM 140 mmol/L (136-145); TOTAL PROTEIN 5.2 gm/dL (6.4-8.2)
[2018-03-16 07:20] LABS: PLATELET SUFFICIENCY NORMAL (NORMAL); TOTAL CELLS COUNTED 100 #CELLS
[2018-03-16 08:00] VITALS: BP 133/87
[2018-03-16 11:53] VITALS: BP 140/70
[2018-03-16] MEDS ORDERED: VITAMIN D31000 UNIT PO (13:00)
[2018-03-16] MEDS ORDERED: METFORMIN HCL1000 M1 PO (13:00)
[2018-03-16] MEDS ORDERED: AZITHROMYCIN500 M2 PO (13:00)
[2018-03-16] MEDS ORDERED: ACETAZOLAMIDE250 MG PO (13:00)
[2018-03-16] MEDS ORDERED: PREDNISONE10 MG PO (13:00)
== END 2018-03-16 16:25 | disposition home health service (06) | DRG 189 ==
LOC: ED 13:42 → 5E 17:20 → EDHOLD 17:20 → 5E 17:53
PROVIDERS: Internal Medicine; Internal Medicine Critical Care Medicine; Internal Medicine Hospice and Palliative Medicine; Physician Assistant; Student in an Organized Health Care Education/Training Program
PROC: 5A09357 Assistance with Respiratory Ventilation, Less than 24 Consecutive Hours, Continuous Positive Airway Pressure (ICD-10-PCS; principal; 2018-03-12)
PROC: 5A09357 Assistance with Respiratory Ventilation, Less than 24 Consecutive Hours, Continuous Positive Airway Pressure (ICD-10-PCS; 2018-03-13)
PROC: 5A09357 Assistance with Respiratory Ventilation, Less than 24 Consecutive Hours, Continuous Positive Airway Pressure (ICD-10-PCS; 2018-03-16)
DX: J96.21 Acute and chronic respiratory failure with hypoxia (principal); E87.3 Alkalosis; I95.9 Hypotension, unspecified; E87.8 Other disorders of electrolyte and fluid balance, not elsewhere classified; I11.0 Hypertensive heart disease with heart failure; E11.65 Type 2 diabetes mellitus with hyperglycemia; I50.32 Chronic diastolic (congestive) heart failure; J44.1 Chronic obstructive pulmonary disease with (acute) exacerbation; J96.22 Acute and chronic respiratory failure with hypercapnia; D72.829 Elevated white blood cell count, unspecified; E87.6 Hypokalemia; F17.210 Nicotine dependence, cigarettes, uncomplicated; M79.7 Fibromyalgia; K57.90 Diverticulosis of intestine, part unspecified, without perforation or abscess without bleeding; F32.9 Major depressive disorder, single episode, unspecified; E55.9 Vitamin D deficiency, unspecified; K21.9 Gastro-esophageal reflux disease without esophagitis; F41.1 Generalized anxiety disorder; E78.00 Pure hypercholesterolemia, unspecified; E66.9 Obesity, unspecified; Z68.35 Body mass index [BMI] 35.0-35.9, adult; Z99.81 Dependence on supplemental oxygen; Z71.6 Tobacco abuse counseling; Z88.8 Allergy status to other drugs, medicaments and biological substances; Z88.6 Allergy status to analgesic agent; Z88.5 Allergy status to narcotic agent; Z90.710 Acquired absence of both cervix and uterus; Z82.49 Family history of ischemic heart disease and other diseases of the circulatory system; Z82.5 Family history of asthma and other chronic lower respiratory diseases; Z83.3 Family history of diabetes mellitus; Z79.899 Other long term (current) drug therapy; Z79.84 Long term (current) use of oral hypoglycemic drugs

== ENCOUNTER 2018-03-23 11:58 | Inpatient (IN) | payer OTHER ==
[~2018-03-23] VITALS: Ht 170.1 cm; Wt 104.3 kg
[~2018-03-23 11:58] MED LIST changes: +ACETAZOLAMIDE250 MG PO; +AZITHROMYCIN500 M2 PO; +BENZONATATE200 MG PO; +METFORMIN ER500 MG PO; +METFORMIN HCL1000 M1 PO; +POTASSIUM CHLO10 MEQ PO; +VITAMIN D31000 UNIT PO
[2018-03-23 12:06] VITALS: BP 100/52
[2018-03-23 12:28] LABS: HEMATOCRIT 38.7 % (37.0-47.0); HEMOGLOBIN 11.3 g/dl (12.0-16.0); MEAN CELL VOLUME 99.7 fl (81.0-99.0); MEAN CORPUSCULAR HGB 29.1 pg (27.0-31.0); MEAN CORPUSCULAR HGB CONC 29.2 g/dl (33.0-37.0); MEAN PLATELET VOLUME 10.7 fl (9.6-12.3); PLATELET COUNT AUTOMATED 121 10*3/uL (130-400); RED BLOOD COUNT 3.88 10*6/uL (4.10-5.10); RED CELL DISTRI WIDTH 13.9 % (0-14.5); WHITE BLOOD COUNT 15.2 10*3/uL (4.8-10.8)
[2018-03-23 12:39] LABS: INTERNATIONAL NORM RATIO 0.9 (2.0-3.5)
[2018-03-23 12:46] LABS: ALBUMIN 3.1 gm/dl (3.1-4.5); ALKALINE PHOSPHATASE 70 U/L (45-117); BUN 14 mg/dl (7-24); CHLORIDE 95 mmol/L (98-107); CREATININE 0.74 mg/dL (0.55-1.02); SGPT/ALT 16 U/L (12-78); SODIUM 141 mmol/L (136-145); TOTAL PROTEIN 6.1 gm/dL (6.4-8.2)
[2018-03-23 12:47] LABS: PLATELET SUFFICIENCY LOW (NORMAL); POLYCHROMASIA SLIGHT; TOTAL CELLS COUNTED 100 #CELLS
[2018-03-23 12:52] LABS: SGOT/AST < 3 IU/L (3-35)
[2018-03-23 12:55] LABS: BILIRUBIN NEGATIVE (NEGATIVE); BLOOD NEGATIVE (NEGATIVE); CLARITY SL CLOUDY (CLEAR); COLOR YELLOW (YELLOW); GLUCOSE 3+ (NEGATIVE); KETONE NEGATIVE (NEGATIVE); LEUKO ESTERASE NEGATIVE (NEGATIVE); NITRITE NEGATIVE (NEGATIVE); UROBILINOGEN 0.2 E.U./dl (0.2-1.0)
[2018-03-23 13:15] LABS: BACTERIA TRACE; CALCIUM OXALATE CRYSTALS TRACE
[2018-03-23 14:19] VITALS: BP 108/60
[2018-03-23 15:30] VITALS: BP 104/66
[2018-03-23 16:30] VITALS: BP 110/62
[2018-03-23] MEDS ORDERED: VITAMIN D50000 UNIT PO (17:12)
[2018-03-23] MEDS ORDERED: GLUCOPHAGE500 M1 PO (17:13)
[2018-03-23 20:00] VITALS: BP 118/72
[2018-03-24 00:11] VITALS: BP 113/57
[2018-03-24 07:07] LABS: HEMATOCRIT 34.6 % (37.0-47.0); HEMOGLOBIN 10.2 g/dl (12.0-16.0); MEAN CELL VOLUME 98.9 fl (81.0-99.0); MEAN CORPUSCULAR HGB 29.1 pg (27.0-31.0); MEAN CORPUSCULAR HGB CONC 29.5 g/dl (33.0-37.0); PLATELET COUNT AUTOMATED 121 10*3/uL (130-400); RED CELL DISTRI WIDTH 13.7 % (0-14.5)
[2018-03-24 07:24] LABS: ALBUMIN 2.8 gm/dl (3.1-4.5); BUN 14 mg/dl (7-24); CHLORIDE 99 mmol/L (98-107); SODIUM 142 mmol/L (136-145)
[2018-03-24 07:28] LABS: TOTAL CELLS COUNTED 100 #CELLS
[2018-03-24 07:29] LABS: PLATELET SUFFICIENCY LOW (NORMAL)
[2018-03-24 07:38] LABS: ALKALINE PHOSPHATASE 58 U/L (45-117); CREATININE 0.62 mg/dL (0.55-1.02); PHOSPHOROUS 2.9 mg/dL (2.5-4.9); SGPT/ALT 8 U/L (12-78); THYROID STIM HORMONE (HS) 0.246 uIU/ml (0.358-4.75); TOTAL PROTEIN 5.6 gm/dL (6.4-8.2)
[2018-03-24 07:42] LABS: SGOT/AST < 3 IU/L (3-35)
[2018-03-24 08:00] VITALS: BP 138/76
[2018-03-24] MEDS ORDERED: Anusol Hc,Anuco25 MG R (09:27)
[2018-03-24] MEDS ORDERED: VITAMIN D31000 UNIT PO (09:27)
== END 2018-03-24 11:16 | disposition home or self-care (01) | DRG 393 ==
LOC: ED 11:58 → 4E 15:18 → EDHOLD 15:18 → 4E 15:47
PROVIDERS: Internal Medicine Hospice and Palliative Medicine; Nurse Practitioner Family
DX: K60.2 Anal fissure, unspecified (principal); K57.31 Diverticulosis of large intestine without perforation or abscess with bleeding; E87.3 Alkalosis; J96.11 Chronic respiratory failure with hypoxia; E44.0 Moderate protein-calorie malnutrition; E11.65 Type 2 diabetes mellitus with hyperglycemia; D69.6 Thrombocytopenia, unspecified; I50.32 Chronic diastolic (congestive) heart failure; J44.1 Chronic obstructive pulmonary disease with (acute) exacerbation; I11.0 Hypertensive heart disease with heart failure; D53.9 Nutritional anemia, unspecified; D72.829 Elevated white blood cell count, unspecified; M79.7 Fibromyalgia; E55.9 Vitamin D deficiency, unspecified; F41.1 Generalized anxiety disorder; K21.9 Gastro-esophageal reflux disease without esophagitis; F32.9 Major depressive disorder, single episode, unspecified; E78.00 Pure hypercholesterolemia, unspecified; Z79.899 Other long term (current) drug therapy; Z79.84 Long term (current) use of oral hypoglycemic drugs; Z90.710 Acquired absence of both cervix and uterus; Z98.51 Tubal ligation status; Z83.6 Family history of other diseases of the respiratory system; Z82.49 Family history of ischemic heart disease and other diseases of the circulatory system; Z83.3 Family history of diabetes mellitus; Z99.81 Dependence on supplemental oxygen; Z71.6 Tobacco abuse counseling; Z72.0 Tobacco use; Z68.35 Body mass index [BMI] 35.0-35.9, adult

== ENCOUNTER 2018-05-05 17:02 | Inpatient (IN) | payer OTHER ==
[~2018-05-05] VITALS: Ht 170.2 cm; Wt 105.5 kg
[2018-05-05] VITALS (8 sets, daily range): BP systolic 93–141; BP diastolic 49–78
--- NOTE | ~2018-05-05 | PR ---
[place], [place] PROGRESS NOTE NAME: KENZIE ORELLANA UNIT #: [id number] ROOM: 519 DOCTOR: JAGUAR GASCA MD BIRTHDATE: [birth year] DOS: 05/08/2018 SUBJECTIVE: She has been transferred to the medical floor at this time showing continued reduction in respiratory symptom. Shortness of breath has been improving. She was noted awake and alert, using the BiPAP at nighttime and p.r.n. during the day. This morning, using oxygen supplementation. She stated that she has been ambulating in the room, going to the bathroom with decreased shortness of breath reported. OBJECTIVE: VITAL SIGNS: For the patient which has been recorded showed normal temperature, respiratory rate 20, heart rate 87, blood pressure 150/89-151/86. Pulse oxygen saturation on 3 liters nasal cannula 97% saturation. HEENT: Examination shows head was atraumatic. Eyes nonicterus. NECK: Supple. CARDIOVASCULAR: S1, S2 is audible. LUNGS: The patient was noted without any wheezing or crackles at the present time. ABDOMEN: Soft and nontender. Bowel sounds present. EXTREMITIES: The patient noted without any acute edema. IMPRESSION: 1. The patient who has been currently noted with resolving acute on chronic hypercapnic hypoxic respiratory failure with exacerbation of chronic obstructive pulmonary disease progressively. 2. Chronic obesity. 3. Suspected obstructive sleep apnea disorder. PLAN OF TREATMENT: The culture of the sputum noted normal josy. Final culture results were pending. Continue the BiPAP treatment. Oxygen supplementation, current dose of corticosteroids, which has been decreased to once a day today. Other therapy, plan and management to be continued for the patient as well. Possible discharge the patient home maybe tomorrow based on further clinical improvement of the respiratory symptoms. [place], [place] PROGRESS NOTE NAME: KENZIE ORELLANA UNIT #: [id number] ROOM: 519 DOCTOR: JAGUAR GASCA MD BIRTHDATE: [birth year] JAGUAR VERMA MD CM:PNTRANS [id number] JAGUAR MAHER MD 05/08/18 1633 interface
--- NOTE | ~2018-05-05 | CON ---
[place], [place] REPORT OF CONSULTATION [id number] UNIT #: [id number] ROOM: [facility] DOCTOR: BAYRON MAHER MD,JAGUAR BIRTHDATE: [birth year] DOS: 05/06/2018 PULMONARY CONSULTATION, EVALUATION AND MANAGEMENT REQUESTING PHYSICIAN: Hospitalist services. REASON FOR CONSULTATION: For current assessment of acute respiratory failure. HISTORY OF PRESENT ILLNESS: This is a 57-year-old white female known to me with past history of chronic hypercapnic hypoxic respiratory failure with COPD and tobacco use. The patient had been previously treated in the hospital in March 2018, treated for almost similar symptoms at that time. The patient presented to the Emergency Room and admitted to the hospital this morning under the hospitalist services. The patient came into the Emergency Room last night. She presented to the Emergency Room as she has been experiencing increased shortness of breath, ongoing for the past 3-4 days. The symptom has been noted with gradual worsening. The symptoms are associated with coughing, which has been noted intermittently by the patient. She does have symptoms of wheezing. Coughing is described as productive at times, but usually noted nonproductive cough. She does have symptoms of tightness in the chest. She has been noted with acute severe hypercapnic hypoxic respiratory failure and has been started on BiPAP, which has been continued on this morning of assessment as the patient was seen. She has been noted with partial improvement in symptoms since hospitalization in the last few hours. REVIEW OF SYSTEMS: CONSTITUTIONAL: Fatigue and tiredness noted with symptoms of chills intermittently. Denies any specific fever. EYES: Denies any burning, discharge, redness or tenderness. EARS, NOSE, AND THROAT: Denies sore throat, hoarseness, otalgia, postnasal drainage or epistaxis. CARDIOVASCULAR: Denies anginal pain, edema or pain of lower extremity. GASTROINTESTINAL: Denies dysphagia, nausea, vomiting, diarrhea, abdominal pain, hematemesis, melena or hematochezia. SKIN: Denies abnormal lesions or rashes. CENTRAL NERVOUS SYSTEM: Denies dizziness, headache, diplopia, syncopal episode or seizure. Remaining systems were reviewed, they were noted all negative. PAST MEDICAL HISTORY: 1. Known with history of severe chronic obstructive pulmonary disease. 2. Chronic hypoxic respiratory failure. 3. Chronic hypercapnic respiratory failure as well. 4. History of congestive heart failure with diastolic dysfunction. 5. Severe obesity. 6. Fibromyalgia. 7. Essential hypertension. 8. History of diverticulosis. [place], [place] REPORT OF CONSULTATION NAME: KENZIE ORELLANA UNIT #: [id number] ROOM: [facility] DOCTOR: BAYRON MAHER MD,JAGUAR BIRTHDATE: [birth year] PAST SURGICAL HISTORY: 1. Hysterectomy. 2. Lumpectomy. 3. Skin graft. 4. Tonsillectomy. SOCIAL HISTORY: Known as she is , lives at home, has 5 children. Denies history of alcohol use or illicit drug use. Smoking started since teenager, 2 packs of cigarettes per day with continued tobacco use, variable amount. There was no history of occupation related pulmonary exposures in the past. FAMILY HISTORY: Father at 75 due to complication of COPD and congestive heart failure. Mother at the age of 66 due to complication related to COPD as well. CURRENT MEDICATIONS ADMINISTERED: Use of Sinemet at bedtime, Seroquel, simvastatin, tramadol, Protonix, Cymbalta, Lovenox for DVT prophylaxis, Solu-Medrol 80 mg b.i.d., DuoNeb q. 4 hours, Mucinex 1200 b.i.d., Rocephin, Zithromax, and other p.r.n. medications. DRUG ALLERGIES: NOTED ALLERGIES TO MANY MEDICATIONS THAT INCLUDE: 1. LORAZEPAM: 2. DEPAKOTE. 3. NAPROXEN. 4. BACTRIM. 5. FELODIPINE. 6. AMLODIPINE. 7. OXAPROZIN. 8. TRAMADOL. 9. GABAPENTIN. 10. EFFEXOR. 11. HYDRALAZINE 12. ZOLOFT. 13. DEMEROL. 14. DILAUDID. 15. BENADRYL. 16. ABILIFY. PHYSICAL EXAMINATION: GENERAL: This is a 57-year-old female patient, currently lying in the bed, using BiPAP, height of 5 feet 7 inches, weight of 232 pounds, BMI 36.4. VITAL SIGNS: Which has been recorded showed temperature noted normal, respiratory rate 18-24, heart rate of 87-93, blood pressure 136/70 to 126/69. The pulse oxygen saturation on room air was 87%, on 4 liter nasals cannula 96%, on BiPAP setting 16/10 with 40% oxygen 98% saturation. HEENT: Head was atraumatic, eyes nonicterus. NECK: Short and obese. Severely reduced posterior pharyngeal space. CARDIOVASCULAR: S1, S2 audible. LUNGS: Noted as moderate to severe decreased breath sounds in the lungs bilaterally with expiratory wheezing. There were no crackles heard. [place], [place] REPORT OF CONSULTATION NAME: [facility]ANA [facility] [id number] UNIT #: [id number] ROOM: [facility] DOCTOR: BAYRON MAHER MD,JAGUAR BIRTHDATE: [birth year] ABDOMEN: Soft, nontender with severe morbid obesity. EXTREMITIES: There was no edema. VISIBLE SKIN: No lesions or rashes. CENTRAL NERVOUS SYSTEM: Cranial nerves 2-12 intact. MUSCULOSKELETAL: Without any acute deformities. LABORATORY AND DIAGNOSTIC DATA: Arterial blood gas for the patient that was done yesterday in the Emergency Room, pH of 7.29, pCO2 100, pO2 94; this was done on 3 liters. The arterial blood gas done on the BiPAP setting 16/10 with 40% oxygen, pH of 7.37, pCO2 71, pO2 68.5. CBC on 05/06/2018, hemoglobin 10.6, hematocrit 35.1, WBC count normal, platelet count normal. BMP this morning for the patient, glucose 170, BUN and creatinine were normal, CO2 of 44, chloride of 88. CMP that was done, glucose of 120, BUN normal, creatinine was normal, CO2 49. The chest x-ray, just one-view, which was done in the Emergency Room, the images were personally reviewed, opacity was noted with changes of COPD, hyperinflation without any acute pulmonary infiltration. IMPRESSION: 1. The patient has been currently admitted to the hospital, noted with findings consistent with severe acute on chronic hypercapnic and hypoxic respiratory failure. 2. Severe metabolic alkalosis secondary to chronic hypercarbia. 3. Strong suspicion of obstructive sleep apnea disorder that has not been assessed or treated at the present time. 4. Continued chronic nicotine dependence. 5. The patient with past hospitalizations, at least twice in the last 3 months. 6. Chronic moderate obesity. PLAN OF MANAGEMENT: At this time, the patient's pH was noted well compensated for the acute hypercapnia hypoxic respiratory failure. She would be continued on the BiPAP except break given for meals. Bronchodilators will be continued, current dose of corticosteroids and Mucinex. Sputum for Gram stain and culture will be obtained. Continuation of current antibiotics, no change in treatment will be made. Keep the patient in the Intensive Care Unit. In case of worsening, the patient may require intubation and mechanical ventilation in the next 24 hours. DVT prophylaxis to be continued. All other supportive plan of management as tolerated will be continued with all the palliative care. Nicotine replacement patches will be ordered as well. The patient is noted with allergies to multiple medications, which have been listed, that poses difficulty in use of some other medications at times. Thank you for allowing me to participate in the care of this patient. [place], [place] REPORT OF CONSULTATION NAME: KENZIE ORELLANA UNIT #: [id number] ROOM: [facility] DOCTOR: JAGUAR GASCA MD BIRTHDATE: [birth year] JAGUAR VERMA MD CM:CONSTR:REPORT OF CONSULTATION 99 05/07/18 0447 interface
--- NOTE | ~2018-05-05 | EKG ---
[place], [place] ELECTROCARDIOGRAM REPORT NAME: KENZIE ORELLANA UNIT #: [id number] ROOM: [facility] DOCTOR: LAURA DRAFT REPORT BIRTHDATE: [birth year] [facility] Test Date: 2018-05-05 Test Time: 17:14:35 Pat Name: KENZIE ORELLANA Department: Room: [facility] Gender: F [employer]: : 1960 Requested By: MARGO ROSALES Order Number: [id number] Reading MD: Carlos Alcantar MD Measurements Intervals [place] Rate: 88 P: 84 ME: 121 QRS: 72 QRSD: 86 T: 72 QT: 352 QTc: 426 Interpretive Statements Sinus rhythm Abnormal R-wave progression, early transition Electronically Signed On 05-05-2018 20:46:37 PDT by Carlos Alcantar MD CM:EKGRPT:ELECTROCARDIOGRAM REPORT 45 MARGO SANCHEZ DRAFT REPORT MARGO ROSALES M.D.
--- NOTE | ~2018-05-05 | PR ---
[place], [place] PROGRESS NOTE NAME: [facility]IE [facility]LLANA [facility] #: [id number] UNIT #: [id number] ROOM: 519 DOCTOR: BAYRON MAHER MD,JAGUAR BIRTHDATE: [birth year] DOS: 05/09/2018 SUBJECTIVE: The patient was noted much better with improvement in the respiratory symptoms, ambulating in her room. Denies symptoms of chest pain, shortness of breath, using oxygen supplementation in the daytime and BiPAP at nighttime. OBJECTIVE: VITAL SIGNS: Normal temperature, respiratory rate 20, heart rate of 83, blood pressure 137/75, pulse ox saturation on 3 liters 96% saturation. HEAD, EYES, EARS, NOSE, AND THROAT: Chronic obesity. Head was atraumatic. Eyes, nonicterus. NECK: Supple. CARDIOVASCULAR SYSTEM: S1, S2 is audible. LUNGS: Noted without any wheeze or crackles. ABDOMEN: Soft, nontender, bowel sounds present. EXTREMITIES: Without any acute edema. LABORATORY DATA: Culture of the sputum, findings as noted normal josy. CBC: WBC count 12.3. IMPRESSION: 1. Resolving acute on chronic hypercapnic hypoxic respiratory failure, exacerbation of chronic obstructive pulmonary disease. 2. Suspected obstructive sleep apnea disorder, not as being assessed for this patient with sleep study or treated. PLAN OF MANAGEMENT: The patient could be considered for discharge on home oxygen as previously used by the patient, bronchodilators, oral tapering prednisone. She was advised to establish appointment in my office for assessment, sleep apnea disorder appropriate management. Abstinence of tobacco use was encouraged. JAGUAR VERMA MD CM:PNTRANS [id number] JAGUAR MAHER MD 05/19/18 0920 interface
--- NOTE | ~2018-05-05 | PR ---
[place], [place] PROGRESS NOTE NAME: KENZIE ORELLANA [facility] #: [id number] UNIT #: [id number] ROOM: 519 DOCTOR: BAYRON MAHER MD,JAGUAR BIRTHDATE: [birth year] DOS: 05/07/2018 SUBJECTIVE: She has been noted comfortable in marked improvement and reduction of respiratory symptoms noted in the last 24 hours. She denies symptoms of chest pain. The patient has used the BiPAP as previously ordered. Denies symptoms of chest pain, any hemoptysis, any abdominal pain. Denies symptoms of headache. Denies symptoms of diplopia. Denies symptoms of pain of the lower extremities or any abnormal skin rashes. Remaining systems were reviewed. They were noted all negative. OBJECTIVE: VITAL SIGNS: For the patient, which have been recorded showed normal temperature, respiratory rate 18, heart rate 91, blood pressure 137/83 175/91. Pulse oxygen saturation 4 liters 95% saturation. HEENT: Chronic obesity. NECK: Supple. CARDIOVASCULAR: S1, S2 audible. LUNGS: Moderate decreased breath sounds with reduction in the wheezing. There were no crackles. ABDOMEN: Soft and obese. EXTREMITIES: Without acute edema. SKIN: No lesions or rashes. MUSCULOSKELETAL: Without any acute deformities. CENTRAL NERVOUS SYSTEM: Intact. LABORATORY DATA: BMP today, normal BUN and creatinine. CO2 was noted as 43 this morning. CBC: WBC count 14.8, hemoglobin 9.9, hematocrit 31.8, platelet count of 264,000. Culture of the sputum yesterday was pending. Gram stain many white blood cells, moderate epithelial cells, moderate gram-positive bacilli. IMPRESSION: 1. The patient who has been currently treated in the hospital. The patient responded to treatment with acute on chronic severe hypercapnic and hypoxic respiratory failure. 2. Acute exacerbation of chronic obstructive pulmonary disease. 3. The patient with acute bronchitis as well. 4. Morbid obesity. 5. Metabolic alkalosis secondary to severe chronic hypercarbia as well. 6. Suspicion of obstructive sleep apnea disorder. No treatment. PLAN OF MANAGEMENT: The patient could be transferred to telemetry floor at the patient's respiratory status has been improving. Continuation of the bronchodilator with oxygen supplementation. Continuation of the BiPAP p.r.n. during the day or intermittently and continue at nighttime. Monitor culture results. Supportive therapy, plan of management and care plan. Diamox will be ordered 150 mg daily. Monitor potassium level. Reduce the dose of Solu-Medrol to 40 mg b.i.d. from 80 mg b.i.d. [place], [place] PROGRESS NOTE NAME: KENZIE ORELLANA UNIT #: [id number] ROOM: [facility] DOCTOR: JAGUAR GASCA MD BIRTHDATE: [birth year] JAGUAR VERMA MD CM:PNTRANS [id number] JAGUAR MAHER MD 05/19/18 0920 interface
[~2018-05-05 17:02] MED LIST changes: +Anusol Hc,Anuco25 MG R; +GLUCOPHAGE500 M1 PO; +VITAMIN D50000 UNIT PO
[2018-05-05] MEDS ORDERED: TYLENOL EXTRA500 M2 PO (17:05)
[2018-05-05] MEDS ORDERED: BREO ELLIPTA 11 EACH INH (17:05)
[2018-05-05] MEDS ORDERED: CARBIDOPA-LEVO1 EAC5 PO (17:07)
[2018-05-05] MEDS ORDERED: Rocaltrol0.25 MCG PO (17:07)
[2018-05-05] MEDS ORDERED: 'CLONIDINE0.1 MG PO (17:08)
[2018-05-05] MEDS ORDERED: CEPACOL SORETH1 EACH PO (17:08)
[2018-05-05] MEDS ORDERED: COREG25 MG PO (17:08)
[2018-05-05] MEDS ORDERED: CYCLOBENZAPRINE5 M3 PO (17:09)
[2018-05-05] MEDS ORDERED: [UNRECOGNIZED DRUG - OTHER] MR (17:10)
[2018-05-05] MEDS ORDERED: CYMBALTA30 MG PO (17:10)
[2018-05-05] MEDS ORDERED: FORTAMET500 MG PO (17:12)
[2018-05-05] MEDS ORDERED: PRINIVIL10 MG PO (17:12)
[2018-05-05] MEDS ORDERED: LASIX20 MG PO (17:12)
[2018-05-05] MEDS ORDERED: PRAVASTATIN SOD40 MG PO (17:13)
[2018-05-05] MEDS ORDERED: PROTONIX IV40 MG PO (17:13)
[2018-05-05] MEDS ORDERED: SEROQUEL25 MG PO (17:13)
[2018-05-05] MEDS ORDERED: ULTRAM50 MG PO (17:14)
[2018-05-05] MEDS ORDERED: VITAMIN D50000 UNIT PO (17:14)
[2018-05-05 17:25] LABS: BASO % 0.5 % (0.0-1.0); EOS # 0.2 10*3/uL (0.0-0.4); EOS % 2.2 % (1.0-4.0); HEMATOCRIT 36.3 % (37.0-47.0); HEMOGLOBIN 10.9 g/dl (12.0-16.0); LYMPH # 1.2 10*3/uL (1.3-4.4); LYMPH % 15.8 % (27.0-41.0); MEAN CELL VOLUME 101.7 fl (81.0-99.0); MEAN CORPUSCULAR HGB 30.5 pg (27.0-31.0); MEAN PLATELET VOLUME 10.1 fl (9.6-12.3); MONO # 0.7 10*3/uL (0.1-1.0); MONO % 8.5 % (3.0-9.0); NEUT # 5.5 10*3/uL (2.3-7.9); NEUT % 71.7 % (47.0-73.0); PLATELET COUNT AUTOMATED 263 10*3/uL (130-400); RED BLOOD COUNT 3.57 10*6/uL (4.10-5.10); WHITE BLOOD COUNT 7.6 10*3/uL (4.8-10.8)
[2018-05-05 17:41] LABS: ALBUMIN 3.1 gm/dl (3.1-4.5); ALKALINE PHOSPHATASE 59 U/L (45-117); BUN 5 mg/dl (7-24); CHLORIDE 86 mmol/L (98-107); CREATININE 0.56 mg/dL (0.55-1.02); POTASSIUM 4.3 mmol/L (3.5-5.1); SGOT/AST 7 IU/L (3-35); SGPT/ALT 12 U/L (12-78); SODIUM 138 mmol/L (136-145); TOTAL PROTEIN 6.2 gm/dL (6.4-8.2)
[2018-05-05 17:48] LABS: TROPONIN I < 0.015 ng/ml (<0.045)
[2018-05-05 18:37] LABS: ABG BASE EXCESS 17.7 mmol/L (-2.0-2.0); ABG HCO3 47.7 mmol/l (22-26); ABG O2 SATURATION 97.9 % (95-97); ARTERIAL BLOOD GAS PH 7.298 (7.35-7.45); ARTERIAL BLOOD GAS PO2 94.1 mmHg (80-90)
[2018-05-05] MEDS ORDERED: DIAZEPAM5 MG PO (23:05)
[2018-05-05] MEDS ORDERED: Sinemet Cr 50/21 TAB PO (23:07)
[2018-05-06] VITALS: BP 105/63
[2018-05-06 04:00] VITALS: BP 111/57
[2018-05-06 05:46] LABS: BUN 8 mg/dl (7-24); CHLORIDE 88 mmol/L (98-107); CREATININE 0.62 mg/dL (0.55-1.02); PHOSPHOROUS 4.5 mg/dL (2.5-4.9); POTASSIUM 5.1 mmol/L (3.5-5.1); SODIUM 135 mmol/L (136-145)
[2018-05-06 05:51] LABS: BASO % 0.3 % (0.0-1.0); HEMATOCRIT 35.1 % (37.0-47.0); HEMOGLOBIN 10.6 g/dl (12.0-16.0); LYMPH # 0.6 10*3/uL (1.3-4.4); LYMPH % 7.5 % (27.0-41.0); MEAN CELL VOLUME 99.2 fl (81.0-99.0); MEAN CORPUSCULAR HGB 29.9 pg (27.0-31.0); MEAN CORPUSCULAR HGB CONC 30.2 g/dl (33.0-37.0); MEAN PLATELET VOLUME 10.5 fl (9.6-12.3); MONO # 0.1 10*3/uL (0.1-1.0); NEUT % 89.2 % (47.0-73.0); PLATELET COUNT AUTOMATED 260 10*3/uL (130-400); RED BLOOD COUNT 3.54 10*6/uL (4.10-5.10); RED CELL DISTRI WIDTH 12.9 % (0-14.5); WHITE BLOOD COUNT 7.9 10*3/uL (4.8-10.8)
[2018-05-06 07:30] LABS: ABG BASE EXCESS 13.8 mmol/L (-2.0-2.0); ABG HCO3 41.5 mmol/l (22-26); ABG O2 SATURATION 93.3 % (95-97); ARTERIAL BLOOD GAS PH 7.378 (7.35-7.45); ARTERIAL BLOOD GAS PO2 68.5 mmHg (80-90)
[2018-05-06 07:37] LABS: ARTERIAL BLOOD GAS PCO2 71.8 mmHg (35-45)
[2018-05-06 08:00] VITALS: BP 164/88
[2018-05-06 12:00] VITALS: BP 126/69
[2018-05-06 16:00] VITALS: BP 106/66
[2018-05-06 20:00] VITALS: BP 135/83
[2018-05-07] VITALS: BP 108/62
[2018-05-07 04:00] VITALS: BP 131/84
[2018-05-07 05:53] LABS: BASO % 0.2 % (0.0-1.0); HEMATOCRIT 31.8 % (37.0-47.0); HEMOGLOBIN 9.9 g/dl (12.0-16.0); LYMPH # 0.7 10*3/uL (1.3-4.4); LYMPH % 5.3 % (27.0-41.0); MEAN CORPUSCULAR HGB 30.2 pg (27.0-31.0); MEAN CORPUSCULAR HGB CONC 31.1 g/dl (33.0-37.0); MEAN PLATELET VOLUME 10.4 fl (9.6-12.3); MONO # 0.7 10*3/uL (0.1-1.0); MONO % 4.9 % (3.0-9.0); NEUT # 12.3 10*3/uL (2.3-7.9); NEUT % 87.7 % (47.0-73.0); PLATELET COUNT AUTOMATED 264 10*3/uL (130-400); RED BLOOD COUNT 3.28 10*6/uL (4.10-5.10); RED CELL DISTRI WIDTH 12.8 % (0-14.5)
[2018-05-07 06:18] LABS: BUN 16 mg/dl (7-24); CHLORIDE 88 mmol/L (98-107); CREATININE 0.57 mg/dL (0.55-1.02); PHOSPHOROUS 2.7 mg/dL (2.5-4.9); POTASSIUM 4.3 mmol/L (3.5-5.1); SODIUM 134 mmol/L (136-145)
[2018-05-07 07:53] VITALS: BP 175/91
[2018-05-07 12:00] VITALS: BP 137/83
[2018-05-07 16:00] VITALS: BP 140/84
[2018-05-07 20:00] VITALS: BP 159/99
[2018-05-08] VITALS: BP 151/86
[2018-05-08 07:04] LABS: HEMOGLOBIN 9.7 g/dl (12.0-16.0); MEAN CORPUSCULAR HGB CONC 31.3 g/dl (33.0-37.0); MEAN PLATELET VOLUME 10.6 fl (9.6-12.3); PLATELET COUNT AUTOMATED 264 10*3/uL (130-400); RED BLOOD COUNT 3.23 10*6/uL (4.10-5.10); RED CELL DISTRI WIDTH 12.9 % (0-14.5)
[2018-05-08 07:27] LABS: TOTAL CELLS COUNTED 100 #CELLS
[2018-05-08 07:28] LABS: PLATELET SUFFICIENCY NORMAL (NORMAL); POLYCHROMASIA SLIGHT
[2018-05-08 07:39] LABS: CHLORIDE 93 mmol/L (98-107); POTASSIUM 3.4 mmol/L (3.5-5.1); SODIUM 135 mmol/L (136-145)
[2018-05-08 08:00] VITALS: BP 158/89
[2018-05-08 08:01] LABS: ALBUMIN 2.8 gm/dl (3.1-4.5); ALKALINE PHOSPHATASE 58 U/L (45-117); BUN 15 mg/dl (7-24); CREATININE 0.64 mg/dL (0.55-1.02); SGOT/AST 7 IU/L (3-35); SGPT/ALT 17 U/L (12-78); TOTAL PROTEIN 5.6 gm/dL (6.4-8.2)
[2018-05-08 12:00] VITALS: BP 118/81
[2018-05-08 16:00] VITALS: BP 147/77
[2018-05-08 20:00] VITALS: BP 125/82
[2018-05-09] VITALS: BP 137/75
[2018-05-09 06:22] LABS: HEMATOCRIT 31.1 % (37.0-47.0); HEMOGLOBIN 9.8 g/dl (12.0-16.0); MEAN CORPUSCULAR HGB 30.2 pg (27.0-31.0); MEAN CORPUSCULAR HGB CONC 31.5 g/dl (33.0-37.0); MEAN PLATELET VOLUME 10.4 fl (9.6-12.3); PLATELET COUNT AUTOMATED 239 10*3/uL (130-400); RED BLOOD COUNT 3.24 10*6/uL (4.10-5.10); WHITE BLOOD COUNT 12.3 10*3/uL (4.8-10.8)
[2018-05-09 06:24] LABS: ALBUMIN 2.6 gm/dl (3.1-4.5); ALKALINE PHOSPHATASE 54 U/L (45-117); BUN 14 mg/dl (7-24); CHLORIDE 98 mmol/L (98-107); CREATININE 0.62 mg/dL (0.55-1.02); POTASSIUM 3.7 mmol/L (3.5-5.1); SGOT/AST 11 IU/L (3-35); SODIUM 139 mmol/L (136-145); TOTAL PROTEIN 5.2 gm/dL (6.4-8.2)
[2018-05-09 07:05] LABS: SGPT/ALT < 6 U/L (12-78)
[2018-05-09 07:06] LABS: TOTAL CELLS COUNTED 100 #CELLS
[2018-05-09 07:07] LABS: PLATELET SUFFICIENCY NORMAL (NORMAL)
[2018-05-09 08:00] VITALS: BP 159/95
[2018-05-09] MEDS ORDERED: MUCINEX ER600 MG PO (11:09)
[2018-05-09] MEDS ORDERED: PREDNISONE10 MG PO (11:09)
[2018-05-09 12:00] VITALS: BP 125/76
== END 2018-05-09 12:45 | disposition home or self-care (01) | DRG 193 ==
LOC: ED 17:02 → EDHOLD 18:47 → 5E 18:47 → ICCU 18:47 → 5E 05-07 17:53
PROVIDERS: Emergency Medicine; Internal Medicine; Internal Medicine Critical Care Medicine; Student in an Organized Health Care Education/Training Program
PROC: 5A09357 Assistance with Respiratory Ventilation, Less than 24 Consecutive Hours, Continuous Positive Airway Pressure (ICD-10-PCS; principal; 2018-05-05)
PROC: 5A09357 Assistance with Respiratory Ventilation, Less than 24 Consecutive Hours, Continuous Positive Airway Pressure (ICD-10-PCS; 2018-05-06)
PROC: 5A09357 Assistance with Respiratory Ventilation, Less than 24 Consecutive Hours, Continuous Positive Airway Pressure (ICD-10-PCS; 2018-05-08)
PROC: 5A09357 Assistance with Respiratory Ventilation, Less than 24 Consecutive Hours, Continuous Positive Airway Pressure (ICD-10-PCS; 2018-05-09)
DX: J18.9 Pneumonia, unspecified organism (principal); J96.21 Acute and chronic respiratory failure with hypoxia; E87.2 Acidosis; J96.22 Acute and chronic respiratory failure with hypercapnia; I50.32 Chronic diastolic (congestive) heart failure; E44.0 Moderate protein-calorie malnutrition; J44.1 Chronic obstructive pulmonary disease with (acute) exacerbation; J44.0 Chronic obstructive pulmonary disease with (acute) lower respiratory infection; I11.0 Hypertensive heart disease with heart failure; J20.9 Acute bronchitis, unspecified; M79.7 Fibromyalgia; F32.9 Major depressive disorder, single episode, unspecified; K57.90 Diverticulosis of intestine, part unspecified, without perforation or abscess without bleeding; F17.210 Nicotine dependence, cigarettes, uncomplicated; E11.65 Type 2 diabetes mellitus with hyperglycemia; E55.9 Vitamin D deficiency, unspecified; K21.9 Gastro-esophageal reflux disease without esophagitis; F41.1 Generalized anxiety disorder; D53.9 Nutritional anemia, unspecified; E78.00 Pure hypercholesterolemia, unspecified; G43.909 Migraine, unspecified, not intractable, without status migrainosus; Z66 Do not resuscitate; Z51.5 Encounter for palliative care; E66.8 Other obesity; Z99.81 Dependence on supplemental oxygen; Z71.6 Tobacco abuse counseling; Z79.899 Other long term (current) drug therapy; Z88.8 Allergy status to other drugs, medicaments and biological substances; Z88.2 Allergy status to sulfonamides; Z90.710 Acquired absence of both cervix and uterus; Z90.89 Acquired absence of other organs; Z98.51 Tubal ligation status; Z82.49 Family history of ischemic heart disease and other diseases of the circulatory system; Z83.6 Family history of other diseases of the respiratory system; Z83.3 Family history of diabetes mellitus; Z68.36 Body mass index [BMI] 36.0-36.9, adult